=== PATIENT | female | born 1950 | race Caucasian/White ===

== ENCOUNTER 2020-08-16 10:12 | Outpatient (REF) | payer MEDICARE, SELFPAY ==
[2020-08-16 11:32] LABS: Estimated Average Glucose 180 mg/dL; Hemoglobin A1c % 7.9 %
[2020-08-16 11:41] LABS: Alanine Aminotransferase 19 U/L (0-31); Cholesterol 194 mg/dL; Glucose Fasting 149 mg/dL (60-99); HDL Cholesterol 86 mg/dL; LDL Cholesterol Calculated 90 mg/dl; Triglycerides 93 mg/dL
[2020-08-16 14:35] LABS: Creatinine Urine 146.03 mg/dL; Microalbum/Creatinine Ratio Ur 10.2 ug/mg cr
== END 2020-08-16 10:13 | disposition home or self-care (01) ==
LOC: HO.HMGCLDS 10:12
PROVIDERS: PCP Family Medicine; Visit Provider Family Medicine
DX: E11.9 Type 2 diabetes mellitus without complications (principal); E78.00 Pure hypercholesterolemia, unspecified; Z79.899 Other long term (current) drug therapy
CPT/HCPCS: 36415; 80061; 82043; 82550; 82947; 83036; 84460

== ENCOUNTER 2020-11-21 11:41 | Outpatient (REF) | payer MEDICARE, SELFPAY ==
[2020-11-21 14:37] LABS: Free T4 (Free Thyroxine) 1.19 ng/dL (0.71-1.85); Thyroid Stimulating Hormone 0.71 uIU/mL (0.32-4.0)
== END 2020-11-21 11:42 | disposition home or self-care (01) ==
LOC: HO.HMGCLDS 11:41
PROVIDERS: PCP Family Medicine; Visit Provider Family Medicine
DX: E03.9 Hypothyroidism, unspecified (principal)
CPT/HCPCS: 36415; 84439; 84443

== ENCOUNTER 2021-01-04 08:38 | Outpatient (REF) | payer MEDICARE, SELFPAY ==
--- NOTE | ~2021-01-04 | MM_ITS ---
EXAMINATION: MM SCREENING DIGITAL BREAST TOMOSYNTHESIS, BILATERAL CLINICAL INFORMATION: Screening. Asymptomatic. The lifetime risk of breast cancer based on the Tyrer-Cuzick Model is 8.9%. COMPARISON: Mammography: June 24, 2019 and studies dating back to October 28, 2011 TECHNIQUE: Digital breast tomosynthesis is performed in both the craniocaudal and mediolateral oblique views along with computer-aided detection (CAD). Synthesized 2D images are generated from the tomosynthesis. FINDINGS: There are scattered areas of fibroglandular density (ACR BI-RADS breast composition Category b). There are no significant masses, abnormal calcifications, or other abnormalities. MM/MM tomosynthesis screening BI IMPRESSION: There are no significant changes from prior study. ASSESSMENT: BI-RADS 1: Negative RECOMMENDATION: Routine annual mammography screening. This patient's information was entered into a reminder system with a target due date for their next mammogram.
== END 2021-01-04 08:39 | disposition home or self-care (01) ==
LOC: HO.MAMMO 08:38
PROVIDERS: PCP Family Medicine; Visit Provider Family Medicine
DX: Z12.31 Encounter for screening mammogram for malignant neoplasm of breast (principal)
CPT/HCPCS: 77063; 77067

== ENCOUNTER 2021-02-28 09:19 | Outpatient (REF) | payer MEDICARE, SELFPAY ==
[2021-02-28 12:01] LABS: Estimated Average Glucose 177 mg/dL; Hemoglobin A1c % 7.8 %
[2021-02-28 12:16] LABS: Alanine Aminotransferase 19 U/L (0-31); Anion Gap 12 (12-20); Blood Urea Nitrogen 14 mg/dL (9-16); Carbon Dioxide 29 mmol/L (22-29); Chloride 105 mmol/L (96-108); Estimated Glomerular Filt Rate > 60; Glucose Fasting 163 mg/dL (60-99); Potassium 4.9 mmol/L (3.3-5.1); Sodium 141 mmol/L (135-145)
== END 2021-02-28 09:20 | disposition home or self-care (01) ==
LOC: HO.HMGCLDS 09:19
PROVIDERS: PCP Family Medicine; Visit Provider Family Medicine
DX: E11.9 Type 2 diabetes mellitus without complications (principal); E78.00 Pure hypercholesterolemia, unspecified; I10 Essential (primary) hypertension; Z79.899 Other long term (current) drug therapy
CPT/HCPCS: 36415; 80051; 82550; 82565; 82947; 83036; 84460; 84520

== ENCOUNTER 2021-07-02 09:58 | Outpatient (REF) | payer MEDICARE, SELFPAY ==
[2021-07-02 11:52] LABS: Estimated Average Glucose 209 mg/dL; Hemoglobin A1c % 8.9 %
[2021-07-02 11:53] LABS: Glucose Fasting 175 mg/dL (60-99)
[2021-07-02 12:22] LABS: Free T4 (Free Thyroxine) 1.15 ng/dL (0.71-1.85); Thyroid Stimulating Hormone 0.49 uIU/mL (0.32-4.0)
== END 2021-07-02 09:59 | disposition home or self-care (01) ==
LOC: HO.HMGCLDS 09:58
PROVIDERS: PCP Family Medicine; Visit Provider Family Medicine
DX: E03.9 Hypothyroidism, unspecified (principal); E11.9 Type 2 diabetes mellitus without complications
CPT/HCPCS: 36415; 82947; 83036; 84439; 84443

== ENCOUNTER 2021-08-23 08:49 | Outpatient (REF) | payer MEDICARE, SELFPAY ==
[2021-08-23 11:37] LABS: Estimated Average Glucose 220 mg/dL; Hemoglobin A1c % 9.3 %
[2021-08-23 12:01] LABS: Alanine Aminotransferase 16 U/L (0-31); Aspartate Amino Transferase 17 U/L (5-31); Estimated Glomerular Filt Rate > 60; Glucose Fasting 161 mg/dL (60-99)
== END 2021-08-23 08:50 | disposition home or self-care (01) ==
LOC: HO.HMGCLDS 08:49
PROVIDERS: PCP Family Medicine; Visit Provider Family Medicine
DX: E11.9 Type 2 diabetes mellitus without complications (principal); E78.00 Pure hypercholesterolemia, unspecified; Z79.899 Other long term (current) drug therapy
CPT/HCPCS: 36415; 82565; 82947; 83036; 84450; 84460

== ENCOUNTER 2021-09-26 12:08 | Outpatient (REF) | payer MEDICARE, SELFPAY ==
--- NOTE | ~2021-09-26 | XR_ITS ---
EXAMINATION: XR HIP, RIGHT CLINICAL INFORMATION: Right hip pain. COMPARISON: X-rays of the right femur September 2014. TECHNIQUE: Two views of the right hip. FINDINGS: The right hip joint is normal without joint space narrowing or degenerative changes. Postop changes in the femur with antegrade femoral lauren with proximal screw in place as seen previously. Heterotopic ossification noted along the proximal end of the lauren unchanged. Slight deformity of the proximal femur unchanged compatible with old healed fracture. XR/XR hip RT min 2V IMPRESSION: Right hip joint is within normal limits without arthrosis. Postop changes of the femur and old stable healed fracture.
== END 2021-09-26 12:09 | disposition home or self-care (01) ==
LOC: HO.HMGCX 12:08
PROVIDERS: PCP Family Medicine; Visit Provider Family Medicine
DX: M25.551 Pain in right hip (principal)
CPT/HCPCS: 73502

== ENCOUNTER 2021-12-27 11:20 | Outpatient (REF) | payer MEDICARE, SELFPAY ==
[2021-12-27 14:01] LABS: Appearance Urine HAZY; Color Urine YELLOW; Glucose Urine UA >=1000 MG/DL (NEG); Leukocyte Esterase Urine NEG (NEG); Nitrite Urine NEG (NEG); PH 5.5 (5.0-8.0); Specific Gravity - Urine 1.025 (1.005-1.025); UACC Culture Trigger NO; Urine Blood TRACE (NEG); Urine Ketones NEG (NEG); Urine Protein NEG (NEG-TRACE)
[2021-12-27 14:15] LABS: Bacteria Urine 2+ /LPF; Calcium Oxalate Crystals Urine 2+ /LPF; RBC Urine 0-2 /HPF (0); UACC CULT YES
== END 2021-12-27 11:21 | disposition home or self-care (01) ==
LOC: HO.HMGCLDS 11:20
PROVIDERS: PCP Family Medicine; Visit Provider Family Medicine
DX: R30.0 Dysuria (principal)
CPT/HCPCS: 81001; 81003; 87086; 87088; 87186

== ENCOUNTER 2022-03-18 09:54 | Outpatient (REF) | payer MEDICARE, SELFPAY ==
[2022-03-18 11:44] LABS: Estimated Average Glucose 174 mg/dL; Hemoglobin A1c % 7.7 %
[2022-03-18 12:04] LABS: Alanine Aminotransferase 16 U/L (0-31); Aspartate Amino Transferase 18 U/L (5-31); Estimated Glomerular Filt Rate > 60; Glucose Random 128 mg/dL (60-115)
[2022-03-18 12:07] LABS: Free T4 (Free Thyroxine) 1.25 ng/dL (0.71-1.85)
[2022-03-18 12:10] LABS: Creatinine Urine 65.22 mg/dL; Microalbum/Creatinine Ratio Ur 7.6 ug/mg cr
== END 2022-03-18 09:55 | disposition home or self-care (01) ==
LOC: HO.HMGCLDS 09:54
PROVIDERS: PCP Family Medicine; Visit Provider Family Medicine
DX: E11.9 Type 2 diabetes mellitus without complications (principal); E78.00 Pure hypercholesterolemia, unspecified; E03.9 Hypothyroidism, unspecified; Z79.899 Other long term (current) drug therapy
CPT/HCPCS: 36415; 82043; 82550; 82565; 82947; 83036; 84439; 84450; 84460

== ENCOUNTER 2022-03-25 13:31 | Outpatient (REF) | payer MEDICARE, SELFPAY ==
--- NOTE | ~2022-03-25 | XR_ITS ---
EXAMINATION: XR SHOULDER, LEFT CLINICAL INFORMATION: Pain COMPARISON lung is grossly clear: Left shoulder radiographs 10/14/2015 TECHNIQUE: Three views of the left shoulder. FINDINGS: No acute fracture or dislocation. Glenohumeral joint space appears maintained as does the acromiohumeral interval. No periarticular soft tissue calcification. AC joint is congruent and intact with subchondral sclerosis and osteophyte formation. Visualized left lung is grossly clear. XR/XR shoulder LT min 2V IMPRESSION: 1. No acute osseous injury. 2. Mild acromioclavicular arthropathy, development since prior 2015.
== END 2022-03-25 13:32 | disposition home or self-care (01) ==
LOC: HO.HMGCX 13:31
PROVIDERS: PCP Family Medicine; Visit Provider Family Medicine
DX: M25.512 Pain in left shoulder (principal)
CPT/HCPCS: 73030

== ENCOUNTER 2022-08-16 10:39 | Outpatient (REF) | payer MEDICARE, SELFPAY ==
[2022-08-16 14:05] LABS: MANUAL DIFF FLAG NO
[2022-08-16 14:10] LABS: Basophils Percent Auto 0.6 % (0-2); Eosinophils Absolute Auto 0.1 X10*3/uL (0.0-0.4); Eosinophils Percent Auto 1.5 % (0-4); Hematocrit 47.9 % (37.0-47.0); Hemoglobin 15.7 g/dl (12.0-16.0); Imm Gran Abs Auto 0.02 X10*3/uL (0.00-0.03); Imm Gran Pct Auto 0.4 % (0.0-0.4); Lymphocytes Absolute Auto 1.6 X10*3/uL (1.2-4.9); Lymphocytes Percent Auto 30.1 % (20-40); Mean Corpuscular HGB Conc 32.8 g/dl (31.0-35.0); Mean Corpuscular Hemoglobin 33.4 pg (27.0-33.0); Mean Corpuscular Volume 101.9 fL (80.0-98.0); Mean Platelet Volume 9.9 fL (9.4-12.3); Monocytes Absolute Auto 0.4 X10*3/uL (0.1-1.2); Monocytes Percent Auto 6.7 % (2-11); Neutrophils Absolute Auto 3.3 x10*3/uL (2.0-8.3); Neutrophils Percent Auto 60.7 % (45-73); Platelet Count 299 X10*3/uL (160-400); Red Cell Distribution Width 12.9 % (11.0-16.0); White Blood Count 5.4 X10*3/uL (4.8-10.8)
[2022-08-16 14:17] LABS: Estimated Average Glucose 186 mg/dL; Hemoglobin A1c % 8.1 %
[2022-08-16 14:32] LABS: Alanine Aminotransferase 14 U/L (0-31); Aspartate Amino Transferase 17 U/L (5-31); Glucose Fasting 117 mg/dL (60-99)
[2022-08-16 14:34] LABS: Creatinine Urine 64.07 mg/dL; Microalbum/Creatinine Ratio Ur 12.4 ug/mg cr
[2022-08-16 14:40] LABS: Free T4 (Free Thyroxine) 1.25 ng/dL (0.71-1.85)
[2022-08-16 14:53] LABS: Erythrocyte Sedimentation Rate 2 MM/HR (0-20)
== END 2022-08-16 10:40 | disposition home or self-care (01) ==
LOC: HO.HMGCLDS 10:39
PROVIDERS: PCP Family Medicine; Visit Provider Family Medicine
DX: E11.9 Type 2 diabetes mellitus without complications (principal); R63.4 Abnormal weight loss; E03.9 Hypothyroidism, unspecified; E78.00 Pure hypercholesterolemia, unspecified; Z79.899 Other long term (current) drug therapy
CPT/HCPCS: 36415; 82043; 82550; 82947; 83036; 84439; 84450; 84460; 85025; 85652

== ENCOUNTER 2022-09-04 09:15 | Outpatient (REF) | payer MEDICARE, SELFPAY ==
[2022-09-04 11:27] LABS: Glucose Fasting 142 mg/dL (60-99)
[2022-09-04 11:47] LABS: Estimated Average Glucose 189 mg/dL; Hemoglobin A1c % 8.2 %
== END 2022-09-04 09:16 | disposition home or self-care (01) ==
LOC: HO.HMGCLDS 09:15
PROVIDERS: Visit Provider Family Medicine
DX: Z13.89 Encounter for screening for other disorder (principal)
CPT/HCPCS: 36415; 82947; 83036

== ENCOUNTER 2022-09-10 09:52 | Outpatient (REF) | payer MEDICARE, SELFPAY ==
--- NOTE | ~2022-09-10 | MM_ITS ---
EXAMINATION: MM SCREENING DIGITAL BREAST TOMOSYNTHESIS, BILATERAL CLINICAL INFORMATION: Screening. Asymptomatic. Family history breast cancer, father, age 91. The lifetime risk of breast cancer based on the Tyrer-Cuzick Model is 7%. COMPARISON: Mammography: 01/04/2021, 06/24/2019, 06/12/2018 TECHNIQUE: Digital breast tomosynthesis is performed in both the craniocaudal and mediolateral oblique views along with computer-aided detection (CAD). Synthesized 2D images are generated from the tomosynthesis. Additional left CC view is provided. FINDINGS: There are scattered areas of fibroglandular density (ACR BI-RADS breast composition Category b). There are no significant masses, abnormal calcifications, or other abnormalities. There is dermal lesion again seen overlying the posterior upper left breast marked with skin marker. The axilla are unremarkable. No significant changes. MM/MM tomosynthesis screening BI IMPRESSION: No mammographic evidence of malignancy. ASSESSMENT: BI-RADS 2: Benign RECOMMENDATION: Routine annual mammography screening. This patient's information was entered into a reminder system with a target due date for their next mammogram.
== END 2022-09-10 09:53 | disposition home or self-care (01) ==
LOC: HO.MAMMO 09:52
PROVIDERS: PCP Family Medicine; Visit Provider Family Medicine
DX: Z12.31 Encounter for screening mammogram for malignant neoplasm of breast (principal)
CPT/HCPCS: 77063; 77067

== ENCOUNTER 2023-01-28 10:20 | Outpatient (REF) | payer MEDICARE, SELFPAY ==
[2023-01-28 13:32] LABS: Estimated Average Glucose 157 mg/dL; Hemoglobin A1c % 7.1 %
[2023-01-28 13:37] LABS: Glucose Fasting 130 mg/dL (60-99)
[2023-01-28 13:41] LABS: Free T4 (Free Thyroxine) 1.11 ng/dL (0.71-1.85)
== END 2023-01-28 10:21 | disposition home or self-care (01) ==
LOC: HO.HMGCLDS 10:20
PROVIDERS: PCP Family Medicine; Visit Provider Family Medicine
DX: E11.9 Type 2 diabetes mellitus without complications (principal); E03.9 Hypothyroidism, unspecified
CPT/HCPCS: 36415; 82947; 83036; 84439

== ENCOUNTER 2023-02-17 11:55 | Outpatient (REF) | payer MEDICARE, SELFPAY ==
[2023-02-17 13:19] LABS: MANUAL DIFF FLAG NO
[2023-02-17 13:43] LABS: Basophils Percent Auto 0.3 % (0-2); Eosinophils Percent Auto 0.3 % (0-4); Hematocrit 46.8 % (37.0-47.0); Hemoglobin 15.4 g/dl (12.0-16.0); Imm Gran Abs Auto 0.03 X10*3/uL (0.00-0.03); Imm Gran Pct Auto 0.4 % (0.0-0.4); Lymphocytes Absolute Auto 1.9 X10*3/uL (1.2-4.9); Lymphocytes Percent Auto 25.8 % (20-40); Mean Corpuscular HGB Conc 32.9 g/dl (31.0-35.0); Mean Corpuscular Hemoglobin 32.9 pg (27.0-33.0); Mean Platelet Volume 9.9 fL (9.4-12.3); Monocytes Absolute Auto 0.5 X10*3/uL (0.1-1.2); Monocytes Percent Auto 7.2 % (2-11); Platelet Count 313 X10*3/uL (160-400); Red Blood Count 4.68 X10*6/uL (4.20-5.50); Red Cell Distribution Width 13.5 % (11.0-16.0); White Blood Count 7.5 X10*3/uL (4.8-10.8)
[2023-02-17 14:05] LABS: Alanine Aminotransferase 19 U/L (0-31); Albumin Level 4.3 g/dL (3.5-5.0); Alkaline Phosphatase 68 U/L (39-117); Anion Gap 13 (12-20); Aspartate Amino Transferase 16 U/L (5-31); Bilirubin Total 0.4 mg/dL (0.0-1.0); Blood Urea Nitrogen 19 mg/dL (9-16); Calcium 9.9 mg/dL (8.4-10.2); Carbon Dioxide 28 mmol/L (22-29); Chloride 105 mmol/L (96-108); Estimated Glomerular Filt Rate > 60; Glucose Random 143 mg/dL (60-115); Sodium 142 mmol/L (135-145); Total Protein 7.2 g/dL (6.5-8.0)
== END 2023-02-17 11:56 | disposition home or self-care (01) ==
LOC: HO.10HDL 11:55
PROVIDERS: Visit Provider Family Medicine
DX: I10 Essential (primary) hypertension (principal)
CPT/HCPCS: 36415; 80053; 85025

== ENCOUNTER 2023-08-12 10:22 | Outpatient (AMB) | payer MEDICARE, SELFPAY ==
[2023-08-12 10:30] VITALS: BMI 24.4
--- NOTE | 2023-08-12 10:30 | A.OFFVIS_ITS ---
Intake VS Expanded 08/12/23 10:30 08/18/23 13:29 Height 5 ft 2 in 5 ft 2 in Weight 133 lb 2.547 oz 133 lb BMI 24.4 24.3 Intake Visit Reasons: Nutrition/CONFIRMED Allergies codeine [CODEINE] Allergy (Mild, Unverified 03/23/20 16:28) DOUBLE VISION Codeine Phosphate Allergy (Unknown, Uncoded 05/27/11 00:00) HPI Nutrition Presentation Details Pt present for MNT for T2DM. Pt was referred by Brad Young Patient reports her fasting bg range at 140 Typical meal intake B: plain oatmeal nuts/blueberries L: fast food dinner: oatmeal /berries/nut Food frequency Fruits 0-1 a day Vegetables 0 to 2 times a week Dairy 3 servings daily Fish 0 to once a week Empty calorie foods: To per day Physical activity: Reports daily life activities EHR-Hceilmc-Et.Jeor Equation Height 5 ft 2 in Weight 133 lb Resting Metabolic Rate 1076.60 Calculated Activity Level Sedentary Calories Needed to Maintain Weight 1291.92 Diagnosis Nutrition problem #1 altered nutrition labs As related to (etiology) #1 diagnosis As evidenced by (sign/symptom) #1 abnormal lab values (A1c at 8 %) Monitoring/Goals Nutrition problem monitoring level of knowledge/skill, total PRO intake, total CHO intake and oral fluids Learning/Education Readiness to learn good Stages of change action Educational materials provided Yes (Meal planning reducing total carb to 45 g per meal following healthy plate ) Most Recent Diabetes Results: Microalb/Creat Ratio 12.4 ug/mg cr 08/16/22 Creatinine 0.74 mg/dL (0.5-1.4) 02/17/23 Blood Urea Nitrogen 19 mg/dL (9-16) H 02/17/23 Sodium 142 mmol/L (135-145) 02/17/23 Potassium 4.0 mmol/L (3.3-5.1) 02/17/23 Chloride 105 mmol/L (96-108) 02/17/23 Carbon Dioxide 28 mmol/L (22-29) 02/17/23 Calcium 9.9 mg/dL (8.4-10.2) 02/17/23 AST 16 U/L (5-31) 02/17/23 ALT 19 U/L (0-31) 02/17/23 Total Protein 7.2 g/dL (6.5-8.0) 02/17/23 Albumin 4.3 g/dL (3.5-5.0) 02/17/23 Assessment & Plan Assessment & Plan (1) T2DM (type 2 diabetes mellitus): Code(s): E11.9 - Type 2 diabetes mellitus without complications Plan: Wt: 60 Kg ( ) Est kcal needs as per 25 per kg body weigt : 1500 (40% carb, 30% protein/fat) Est fluid needs as per 25 ml/d: 1500 Est prot per day as per 1 g/kg bw: 60 Recommend fiber intake : 8-10 g per day and gradually increase to 25-28 g per day for women and 35-38 g for men or as tolerated Recommend sodium intake per day : less than 2000 mg Educated patient on: ( R = reviewed V = verbalizes understanding N/R = needs review N/A = not applicable * Food sources of carbohydrate, adequate serving sizes and its role in various health conditions: R * Differences between complex carbohydrates a simple carbohydrates, role of fiber in diet: R * Lean protein sources of foods: R * Differences between types of fats and role in diet (mono on saturated fat fatty acids, saturated fatty acids, trans fats): R * Food sources of sodium in salt and healthy modifications for heart health in kidney health: NR * Vitamins and minerals: N/R * Healthy plate method concept: R * Physical activity: Benefits a precaution: R * Hypoglycemia protocol (rule of 15): N/R * Dietary prevention of Hyperglycemia: R Patient Instructions: Reduce on highly processed foods (fried foods, better so, pastries) Work on reducing your total carbohydrates to 45 g following healthy plate method Monitor your blood glucose 2 hours after the meal (blood sugar goal should be between 80 and no greater than 180) Coding Level of Care Code Nutr Indiv Intake (43096) Diagnoses T2DM (type 2 diabetes mellitus) E11.9 Time Spent (min) 30
[2023-08-18 13:29] VITALS: BMI 24.3
== END 2023-08-12 11:11 | disposition home or self-care (01) ==
PROVIDERS: PCP Family Medicine; Visit Provider Dietitian, Registered
DX: E11.9 Type 2 diabetes mellitus without complications (principal)

== ENCOUNTER → 2023-08-12 10:22 | Outpatient (BNVA) | payer MEDICARE, SELFPAY | PROVIDERS: PCP Family Medicine; Visit Provider Dietitian, Registered | DX: E11.9 Type 2 diabetes mellitus without complications (principal) | CPT/HCPCS: 97802 ==

== ENCOUNTER 2023-09-01 08:38 | Outpatient (REF) | payer MEDICARE, SELFPAY ==
[2023-09-01 11:57] LABS: Estimated Average Glucose 171 mg/dL; Hemoglobin A1c % 7.6 % (<6.0)
[2023-09-01 12:05] LABS: Alanine Aminotransferase 18 U/L (0-31); Aspartate Amino Transferase 19 U/L (5-31); Estimated Glomerular Filt Rate > 60; Glucose Fasting 130 mg/dL (60-99)
== END 2023-09-01 08:39 | disposition home or self-care (01) ==
LOC: HO.HMGCLDS 08:38
PROVIDERS: PCP Family Medicine; Visit Provider Family Medicine
DX: E78.00 Pure hypercholesterolemia, unspecified (principal); E11.9 Type 2 diabetes mellitus without complications; Z79.899 Other long term (current) drug therapy
CPT/HCPCS: 36415; 82550; 82565; 82947; 83036; 84450; 84460

== ENCOUNTER 2023-09-24 09:54 | Outpatient (AMB) | payer MEDICARE, SELFPAY ==
[2023-09-24 09:59] VITALS: BMI 23.1
--- NOTE | 2023-09-24 09:59 | A.OFFVIS_ITS ---
Intake VS Expanded 09/24/23 09:59 Height 5 ft 2 in Weight 126 lb 1.671 oz BMI 23.1 Intake Visit Reasons: T2DM/CONFIRMED Allergies codeine [CODEINE] Allergy (Mild, Unverified 09/12/23 13:32) DOUBLE VISION Codeine Phosphate Allergy (Unknown, Uncoded 09/12/23 13:32) HPI Nutrition Presentation Details Pt presents for MNT follow up for T2DM Pt reports working on dietary modifications and keeping physically active. Pt re ports feeling well overall. Takes a daily multivitamin keeping hydrated by having water iwth meals/snacks Keep physically active, daily life activities + work Most Recent Diabetes Results: Microalb/Creat Ratio 12.4 ug/mg cr 08/16/22 Creatinine 0.64 mg/dL (0.5-1.4) 09/01/23 Blood Urea Nitrogen 19 mg/dL (9-16) H 02/17/23 Sodium 142 mmol/L (135-145) 02/17/23 Potassium 4.0 mmol/L (3.3-5.1) 02/17/23 Chloride 105 mmol/L (96-108) 02/17/23 Carbon Dioxide 28 mmol/L (22-29) 02/17/23 Calcium 9.9 mg/dL (8.4-10.2) 02/17/23 AST 19 U/L (5-31) 09/01/23 ALT 18 U/L (0-31) 09/01/23 Total Protein 7.2 g/dL (6.5-8.0) 02/17/23 Albumin 4.3 g/dL (3.5-5.0) 02/17/23 Assessment & Plan Assessment & Plan (1) T2DM (type 2 diabetes mellitus): Code(s): E11.9 - Type 2 diabetes mellitus without complications Plan: Wt: 57 Kg ( 09/24/23 ) Est kcal needs as per 25 per kg body weigt : 1500 (40% carb, 30% protein/fat) Est fluid needs as per 25 ml/d: 1500 Est prot per day as per 1 g/kg bw: 60 Recommend fiber intake : 8-10 g per day and gradually increase to 25-28 g per day for women and 35-38 g for men or as tolerated Recommend sodium intake per day : less than 2000 mg Educated patient on: ( R = reviewed V = verbalizes understanding N/R = needs review N/A = not applicable * Food sources of carbohydrate, adequate serving sizes and its role in various health conditions: R * Differences between complex carbohydrates a simple carbohydrates, role of fiber in diet: R * Lean protein sources of foods: R * Differences between types of fats and role in diet (mono on saturated fat fatty acids, saturated fatty acids, trans fats): R * Food sources of sodium in salt and healthy modifications for heart health in kidney health: R * Vitamins and minerals: R * Healthy plate method concept: R * Physical activity: Benefits a precaution: R * Hypoglycemia protocol (rule of 15): R * Dietary prevention of Hyperglycemia: R Patient Instructions: Continue working on following healthy plate method Read food labels, looking at serving size/ total carb/fiber /protein - balancing meals/snacks Include at least 2 trevon of fruit per day and 2 serving of dairy per day Continue with physical activity as established Coding Level of Care Code Nutr Indiv Subseq (22304) Diagnoses T2DM (type 2 diabetes mellitus) E11.9 Time Spent (min) 30
== END 2023-09-24 10:49 | disposition home or self-care (01) ==
PROVIDERS: PCP Family Medicine; Visit Provider Dietitian, Registered
DX: E11.9 Type 2 diabetes mellitus without complications (principal)

== ENCOUNTER → 2023-09-24 09:54 | Outpatient (BNVA) | payer MEDICARE, SELFPAY | PROVIDERS: PCP Family Medicine; Visit Provider Dietitian, Registered | DX: E11.9 Type 2 diabetes mellitus without complications (principal) | CPT/HCPCS: 97803 ==

== ENCOUNTER 2023-09-30 08:59 | Outpatient (REF) | payer MEDICARE, SELFPAY ==
[2023-09-30 12:13] LABS: Appearance Urine Clear; Color Urine Dark Yellow; Glucose Urine UA >=1000 mg/dL (Negative); Leukocyte Esterase Urine Negative (Negative); Nitrite Urine Positive (Negative); PH 5.5 (5.0-9.0); Specific Gravity - Urine >= 1.030 (1.005-1.025); UMIC TRIGGER UACC YES; Urine Blood Negative (Negative); Urine Ketones Negative (Negative); Urine Protein Negative (Neg-Trace)
[2023-09-30 12:34] LABS: Bacteria Urine 1+ (None Seen); Hyaline Casts Urine 0-2 /LPF (0-2); RBC Urine 0-2 /HPF (0-2); UACC Culture Trigger YES; WBC Urine >50 /HPF (0-5)
[2023-09-30 12:44] LABS: Creatinine Urine 23.61 mg/dL; Microalbum/Creatinine Ratio Ur 105.8 ug/mg cr (<30)
[2023-09-30 13:04] LABS: Free T4 (Free Thyroxine) 1.15 ng/dL (0.71-1.85); Thyroid Stimulating Hormone 0.29 uIU/mL (0.32-4.0)
== END 2023-09-30 09:00 | disposition home or self-care (01) ==
LOC: HO.HMGCLDS 08:59
PROVIDERS: PCP Family Medicine; Visit Provider Family Medicine
DX: N39.0 Urinary tract infection, site not specified (principal); E03.9 Hypothyroidism, unspecified; E11.9 Type 2 diabetes mellitus without complications
CPT/HCPCS: 36415; 81001; 81003; 82043; 82570; 84439; 84443; 87086; 87088; 87186

== ENCOUNTER 2023-10-01 12:02 | Outpatient (REF) | payer MEDICARE, SELFPAY | END 2023-10-01 12:03 | disposition home or self-care (01) | LOC: HO.MAMMO 12:02 | PROVIDERS: PCP Family Medicine; Visit Provider Family Medicine | DX: Z12.31 Encounter for screening mammogram for malignant neoplasm of breast (principal) | CPT/HCPCS: 77063; 77067 ==

== ENCOUNTER → 2023-10-01 12:15 | Outpatient (BNV) | payer MEDICARE, SELFPAY | PROVIDERS: PCP Family Medicine; Visit Provider Radiology Diagnostic Radiology | DX: Z12.31 Encounter for screening mammogram for malignant neoplasm of breast (principal) | CPT/HCPCS: 77063; 77067 ==

== ENCOUNTER 2023-10-15 13:54 | Outpatient (REF) | payer MEDICARE, SELFPAY ==
[2023-10-15 16:19] LABS: Appearance Urine Clear; Color Urine Yellow; Glucose Urine UA >=1000 mg/dL (Negative); Leukocyte Esterase Urine Small (1+) (Negative); Nitrite Urine Negative (Negative); UMIC TRIGGER UACC YES; Urine Blood Trace (Negative); Urine Ketones Trace mg/dL (Negative); Urine Protein Negative (Neg-Trace)
[2023-10-15 16:22] LABS: Bacteria Urine None Seen (None Seen); Hyaline Casts Urine 0-2 /LPF (0-2); RBC Urine 0-2 /HPF (0-2); Squamous Epithelial Cell Urine 0-2 /HPF (0-2); UACC Culture Trigger YES; WBC Urine >50 /HPF (0-5)
== END 2023-10-15 13:55 | disposition home or self-care (01) ==
LOC: HO.HMGCLDS 13:54
PROVIDERS: PCP Family Medicine; Visit Provider Family Medicine
DX: R30.0 Dysuria (principal); R35.0 Frequency of micturition
CPT/HCPCS: 81001; 87086

== ENCOUNTER 2024-03-04 09:04 | Outpatient (REF) | payer MEDICARE, SELFPAY ==
[2024-03-04 13:56] LABS: Alanine Aminotransferase 16 U/L (0-31); Aspartate Amino Transferase 20 U/L (5-31); Estimated Glomerular Filt Rate > 60; Free T4 (Free Thyroxine) 1.01 ng/dL (0.71-1.85); Glucose Fasting 131 mg/dL (60-99)
[2024-03-04 14:02] LABS: Creatinine Urine 55.97 mg/dL; Microalbum/Creatinine Ratio Ur 28.5 ug/mg cr (<30)
[2024-03-04 14:06] LABS: Estimated Average Glucose 174 mg/dL; Hemoglobin A1c % 7.7 % (<6.0)
== END 2024-03-04 09:05 | disposition home or self-care (01) ==
LOC: HO.HMGCLDS 09:04
PROVIDERS: PCP Family Medicine; Visit Provider Family Medicine
DX: E11.9 Type 2 diabetes mellitus without complications (principal); E78.00 Pure hypercholesterolemia, unspecified; E03.9 Hypothyroidism, unspecified
CPT/HCPCS: 36415; 82043; 82550; 82565; 82570; 82947; 83036; 84439; 84450; 84460

== ENCOUNTER 2024-04-06 09:38 | Outpatient (AMB) | payer MEDICARE, SELFPAY ==
[2024-04-06 09:41] VITALS: BMI 24.4
--- NOTE | 2024-04-06 09:41 | A.OFFVIS_ITS ---
VS Expanded 04/06/24 09:41 Height 5 ft 2 in Weight 133 lb 6.075 oz BMI 24.4 Intake Visit Reasons: T2DM/CONFIRMED Allergies codeine [CODEINE] Allergy (Mild, Unverified 09/12/23 13:32) DOUBLE VISION Codeine Phosphate Allergy (Unknown, Uncoded 09/12/23 13:32) Nutrition Presentation Details: Pt presents for MNT f/u for T2DM Pt reports doing well, working on meal planning and reducing on higher sugar/fat foods Pt reports BG ranges in the 140-150s in AM, not monitoring after meals Pt keeps track of foods and bg intake for self assessment. Pt is choosing a variety of foods, following healthy plate method in most meals Pt reports choosing the following vitamins/minerals on and off magnesium,co qq 10, vitami c , vt d3 and on a daily MVI For DM she is on : farxiga, metformin baby asa Pt repors she is also on levoxyl, simvastatin, BS Monitoring Most Recent Diabetes Results: Microalb/Creat Ratio 28.5 ug/mg cr (<30) 03/04/24 Creatinine 0.71 mg/dL (0.5-1.4) 03/04/24 AST 20 U/L (5-31) 03/04/24 ALT 16 U/L (0-31) 03/04/24 Assessment & Plan Assessment & Plan (1) T2DM (type 2 diabetes mellitus): Code(s): E11.9 - Type 2 diabetes mellitus without complications Category: Medical Plan: Wt: 57 Kg ( 09/24/23 ), 60 kg (04/29) Est kcal needs as per 25 per kg body weigt : 1500 (40% carb, 30% protein/fat) Est fluid needs as per 25 ml/d: 1500 Est prot per day as per 1 g/kg bw: 60 Recommend fiber intake : 8-10 g per day and gradually increase to 25-28 g per day for women and 35-38 g for men or as tolerated Recommend sodium intake per day : less than 2000 mg Educated patient on: ( R = reviewed V = verbalizes understanding N/R = needs review N/A = not applicable * Food sources of carbohydrate, adequate serving sizes and its role in various health conditions: R * Differences between complex carbohydrates a simple carbohydrates, role of fiber in diet: R * Lean protein sources of foods: R * Differences between types of fats and role in diet (mono on saturated fat fatty acids, saturated fatty acids, trans fats): R * Food sources of sodium in salt and healthy modifications for heart health in kidney health: R * Vitamins and minerals: R * Healthy plate method concept: R * Physical activity: Benefits a precaution: R * Hypoglycemia protocol (rule of 15): R * Dietary prevention of Hyperglycemia: R Patient Instructions: continue working on having a variety of foods, reducing on total carbohydrates to 45 g per meal following healthy plate method monitor blood sugar 2 hours after your dinner , blood sugar goal less than 180 Coding Level of Care Code Nutr Indiv Subseq (95395) Diagnoses T2DM (type 2 diabetes mellitus) E11.9 Time Spent (min) 30
== END 2024-04-06 10:28 | disposition home or self-care (01) ==
PROVIDERS: PCP Family Medicine; Visit Provider Dietitian, Registered
DX: E11.9 Type 2 diabetes mellitus without complications (principal)

== ENCOUNTER → 2024-04-06 09:38 | Outpatient (BNVA) | payer MEDICARE, SELFPAY | PROVIDERS: PCP Family Medicine; Visit Provider Dietitian, Registered | DX: E11.9 Type 2 diabetes mellitus without complications (principal); Z71.3 Dietary counseling and surveillance | CPT/HCPCS: 97803 ==

== ENCOUNTER 2024-08-27 08:20 | Outpatient (REF) | payer MEDICARE, SELFPAY ==
--- OUTSIDE RECORDS SUMMARY | 2024-08-27 08:32 | XMS_ITS ---
Author Organization [facility] Address [address] [place] [address] Care Team Providers Care Resource Room Teacher Name Role Phone Reed ACKERMAN, Brad Primary Care Provider Unavailab Candace Ko Unavailable [phone] Anurag Jang Unavailable [phone] REASON FOR VISIT /tamara Encounters Encounter Location Date Provider Diagnosis [address] [address] 05/17/2024 Anurag Jang Plan Of Treatment Next Appt Details Provider Name:Olinda Ricks , 05/16/2025 10:00:00 AM, [address] [place] [address], [address], Progress Notes * ARIANNERut MORGANl LDOB: 2 (74 yo F)Acc No.[id number]:05/17/2024 Progress Note Patient:?Alayna FLORES Provider:?Anurag Jang DPM :1950???Age:73 Y???Sex:Female D ate:05/17/2024 Address:[address] [place] Pcp:Brad Mcbride MD Subjective: * Chief Complaints: * ???1. * Medical History:? Objective: * Vitals:? Assessment: Plan: * Treatment: * Images: * The named appointment provid er may or may not be the originator of this progress note, and it is not deemed complete until electronically signed by the appointment provider. Sign off status: Pending * Provider:Willam Jang DPM Date:? 024 Generated for Ayan fleming/Mehdi/Roz on:?08/27/2024 08:31 AM EST
--- OUTSIDE RECORDS SUMMARY | 2024-08-27 08:32 | XMS_ITS | Patient Health Record ---
Author Organization [facility] Address [address] [facility] [place] [address] Care Team Providers Care Siding Coreboard Inspector Name Role Phone Brad Mcbride MD Primary Care Provider Unavailab Candace Ko Unavailable [phone] Rambo, Olinda Unavailable [phone] Anurag Jang Unavailable [phone] Allergies Allergen (clinical drug ingredient) Drug/Non Drug Allergy documented on EMR Reaction Allergy Type Onset Date Status trazodone traZODone HCl Unknown Drug Allergy Act roberta codeine Codeine double vision Drug Allergy Act roberta Results Component Value Reference Range Notes HEMOGLOBIN A1C (GLYCOHEMOGLO BIN) Reviewed date:07/17/2024 06:27:16 PM Interpretation: Performing Lab: Notes/Report: HEMOGLOBIN A1C % (HH) 7.3 HEMOGLOBIN A1C (GLYCOHEMOGLO BIN) Reviewed date:05/17/2024 10:57:55 AM Interpretation: Performing Lab: Notes/Report: HEMOGLOBIN A1C (HH) 7.3 Reason For Referral No Information Medications Medication SIG (Take, Route, Frequency, Duration) Notes Start Date End Date Status Farxiga 10 MG 1 tablet Orally Once a day for 30 day(s) Active Aspirin 81 MG 1 tablet Orally Once a day Active Levoxyl 88 MCG 1 tablet on an empty stomach in the morning Orally Once a day Active Simvastatin 20 MG 1 tablet in the even ing Orally Once a day Active Zocor 20 MG 1 tablet in the even ing Orally Once a day Not-Taking Multivitamins Orally Not-Ta jamel Vitamin C Not-Taking Vitamin D 1000 UNIT 1 tablet Orally Once a day Not-Taking ZyrTEC Not-Taking metFORMIN HCl 1000 MG 1 tablet with a me al Orally Once a day for 30 day(s) Active Social History Tobacco Use: Social History Observation Description Date Details (start date - stop date) Never Smoker NA - NA Tobacco Use/Smoking Question Answer Notes Are you a: nonsmoker Additional Findings: Tobacco Non-User Current no n-smoker Alcohol Screen Question Answer Notes Did you have a drink containing alcohol in the p ast year? No Points 0 Interpretation Negative Tobacco use other than smoking: Question Answer Notes Are you an other tobacco user? No Problems Problem Type SNOMED Code ICD Code Onset Dates Problem Status W/U Status Risk Notes Problem Acquired hallux valgus (38852984) Hallux valgus (acquired), left foot (M20.12) Active confirmed Problem Acquired hallux valgus (88716891) Hallux valgus (acquired), right foot (M20.11) Active confirmed Problem Polyneuropathy due to type 2 diabetes mellitus (339867413) Type 2 diabetes mellitus with diabetic polyneuropathy (E11.42) Active confirmed Vital Signs Height 5 ft 2 in in 05/17/2024 Weight 129 lbs 05/17/2024 BMI 23.59 kg/m2 05/17/2024 Procedures Procedure Date Ordered Date Performed Result Body Sit e 83124-BKAV SKIN LESIONS, OVER 4 05/17/2024 N/A Encounters Encounter Location Date Provider Diagnosis [facility] [address] [address] 05/17/2024 Olinda Black Type 2 diabetes mellitus with diabetic polyneuropathy E11.42 ; Metatarsalgia, left foot M77.42 ; Hallux valgus (acquired), left foot M20.12 ; Hallux valgus (acquired), right foot M20.11 ; Metatarsalgia, right foot M77.41 ; Pain in left foot M79.672 and Pain in right foot M79.671 Assessments Encounter Date Diagnosis (ICD Code) Assessment Notes Treatment Notes Treatment Clinical Notes Section Notes 05/17/2024 Metatarsalgia, left foot (ICD-10 - M77.42) 05/17/2024 Type 2 diabetes mellitus with diabetic polyneuropathy (ICD-10 - E11.42) 05/17/2024 Hallux valgus (acquired), left foot (ICD-10 - M20.12) 05/17/2024 Hallux valgus (acquired), right foot (ICD-10 - M20.11) 05/17/2024 Metatarsalgia, right foot (ICD-10 - M77.41) 05/17/2024 Pain in left foot (ICD-10 - M79.672) 05/17/2024 Pain in right foot (ICD-10 - M79.671) Plan Of Treatment Pending Test Test Name Order Date X ray : Foot, left 2V 09/20/2013 X ray : Foot, left 3V 05/15/2022 X ray : Foot, right 3V 05/15/2022 27863-Smeg Destruction, 1-14 02/10/2017 60073-Flmv Destruction, 1-14 03/07/2017 98089-JICD SKIN LESIONS, OVER 4 05/17/20 24 21580-DEOZ SKIN LESIONS, 2 TO 4 05/15/20 22 17602-KDYJ SKIN LESIONS, 2 TO 4 05/15/20 23 Next Appt Details Provider Name:Olinda Winters Rambo , 05/16/2025 10:00:00 AM, [address] [place], [address], Insurance Providers Payer Name Payer Address Payer Phone Subscriber Number Group Number Insured Name Patient Relationship to Insured Coverage Start Date Coverage End Date [employer] [place] [employer]vantage [facility] [address] [place] [address] [phone] [id number] Alayna Bah Self - patient is the insured Medical (General) History Medical History History ICD Code Broken bones Diabetic Sciatica Thyroid disorder Measles Mumps Chicken pox Joint implants/screws Vertigo covid-19 Warts Surgical History Surgery Date(Month/Year) section 01/16/1979 section 01/29/1983 right femur 07/24/1996 tendonitis, left wrist 2011 tendonitis, right wrist 2019 Hospitalization History Reason Date(Month/Year) Cyst removal from scalp 03/05/17 Colonoscopy 02/28/17
--- OUTSIDE RECORDS SUMMARY | 2024-08-27 08:32 | XMS_ITS ---
Author Organization [facility] Address [address] [facility] [place] [address] Care Team Providers Care Hotel Server Name Role Phone Brad Mcbride MD Primary Care Provider Unavailab Dawna Koine Unavailable [phone] Black, Olinda Unavailable [phone] Allergies Allergen (clinical drug ingredient) Drug/Non Drug Allergy documented on EMR Reaction Allergy Type Onset Date Status trazodone traZODone HCl Unknown Drug Allergy Act roberta codeine Codeine double vision Drug Allergy Act roberta REASON FOR VISIT Foot pain, At Risk Footcare Medications Medication SIG (Take, Route, Frequency, Duration) [...] even ing Orally Once a day Active metFORMIN HCl 1000 MG 1 tablet with a me al Orally Once a day for 30 day(s) Active Zocor 20 MG 1 tablet in the even ing Orally Once a day Not-Taking Multivitamins Orally Not-Ta jamel Vitamin C Not-Taking Vitamin D 1000 UNIT 1 tablet Orally Once a day Not-Taking ZyrTEC Not-Taking Social History Tobacco Use: Social History Observation [...] Are you an other tobacco user? No Vital Signs Height 5 ft 2 in in 05/17/2024 Weight 129 lbs 05/17/2024 BMI 23.59 kg/m2 05/17/2024 Procedures Procedure Date Ordered Date Performed Result Body Sit e 13253-NYLY SKIN LESIONS, OVER 4 05/17/2024 N/A Encounters Encounter Location Date Provider Diagnosis [facility] [place] [address] [place] [address] 05/17/2024 Olinda Ricks Type 2 diabetes mellitus with diabetic polyneuropathy E11.42 ; Metatarsalgia, left foot M77.42 ; Hallux valgus (acquired), left foot M20.12 ; Hallux valgus (acquired), right foot M20.11 ; Metatarsalgia, right foot M77.41 ; Pain in left foot M79.672 and Pain in right foot M79.671 Assessments Encounter Date Diagnosis (ICD Code) Assessment Notes Treatment Notes Treatment Clinical Notes Section Notes 05/17/2024 Type 2 diabetes mellitus with diabetic polyneuropathy (ICD-10 - E11.42) 05/17/2024 Metatarsalgia, left foot (ICD-10 - M77.42) 05/17/2024 Hallux valgus (acquired), left foot (ICD-10 - M20.12) 05/17/2024 Hallux valgus (acquired), right foot (ICD-10 - M20.11) 05/17/2024 Metatarsalgia, right foot (ICD-10 - M77.41) 05/17/2024 Pain in left foot (ICD-10 - M79.672) 05/17/2024 Pain in right foot (ICD-10 - M79.671) Plan Of Treatment Pending Test Test Name Order Date 04964-EAON SKIN LESIONS, OVER 4 05/17/20 24 Next Appt Details Follow Up: 1 Year, Reason: Provider Name:Olinda A Rambo , 05/16/2025 10:00:00 AM, [address] [place] [address], [id number], Procedure Notes * Category Sub-Category Detail Notes Keratoma Treatment Parring or Cutting o f Benign Hyperkeratotic Lesion(s) (-57) More than 4 Lesions - The Benign hyperkeratotic lesions, as described in exam, were pared, and/or cut utilizing a sterile 15 blade, tissue nippers, and/or dremel - 97528 Progress Notes * Alayna FLORES LDOB: 2 (74 yo F)Acc No.[id number]:05/17/2024 Progress Note Patient:?Alayna FLORES Provider:?Olinda Ricks DPM :1950???Age:73 Y???Sex:Female D ate:05/17/2024 Address:[address] [place], [place] [address]g[place], [facility], [id number] Pcp:Brad Mcbride MD Subjective: * Chief Complaints: * ???Foot painAt Risk Footcare * HPI: ???Foot Pain:?Nature:?aching, tenderness.?Location?Great toe joint, B/L.?Duration:?several years.?Onset/Cause:?unknown.?Course:?, improved, at 50 %.?Aggrevated:?any pressure, shoes.?Treatments:?change in shoes;, medication ( _aspercream_ )- pt is not wear the dispensed pedag inserts.?Quality/Severity?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denies.?Swollen glands?denies.?Respiratory:?On O xygen?denies.?Pneumonia/pleurisy?denies.?Bronchitis?denies.?Emphysema?denies.?Co ughing?denies.?Cough blood?denies.?Shortness of breath?denies.?Wheezing?denies.?Cardiovascular:?Pacemaker?denies.?MVP?denies.?WPW?denies.?CHF?denies.?Heart attack?denies.?Septal defect?denies.?Rapid beat?denies.?Chest pain ?denies.?Atrial Fib.?denies.?Murmur/Palpitations?denies.?Gastrointestinal:?Hemorrhoids?denies.?Stomach/Abdominal pain?denies.?Dark blood stool?denies.?Irritable bowel ?denies.?Constipation?denies.?Diarrhea?denies.?Vomiting?denies.?Hematology:?Swelling?denies.?Bruising?denies.?Bleeding problem?denies.?Genitourinary:?Blood urine?denies.?Frequent/Painfu/urination/bladder control?denies.?Kidney stones?denies.?Infection (UTI)?denies.?Nephropathy?denies.?Musculoskeletal:?Hammertoes?denies.?Bunions?admits.?Scoliosis/kyphosis?denies.?Muscle cramps / walking?denies.?Generalized aches and pains?admits.?Weakness?denies.?Integ.:?Denny?denies.?Scars?denies.?Corns/calluses?admits.?Ingrown nails?denies.?Painful nails?denies.?Rashes?denies.?Neurologic:?Difficulty sleeping?denies.?Bipolar?denies.?Brain disorder?denies.?Balance t rouble?denies.?Confusion?denies.?Fainting/blackouts?denies.?Headache?denies.?Erick mors?denies.? * Medical History:? * Surgical History:? s ection 01/16/1979cesarean section 01/29/1983right femur 07/24/1996tendonitis, left wrist 2012tendonitis, right wrist 2018 * Hospitalization/Major Diagno stic Procedure:?Colonoscopy 02/28/17Cyst removal from scalp 03/05/17 * Family History:?Mother: dece ased, foot problems , poor circulation, diagnosed with Other malignant neoplasm of unspecified site, Diabetic - NIDDM, Unspecified essential hypertension, Unspecified heart disease, Unspecified cerebral artery occlusion with cerebral infarction, Family history of arthritis.?Father: , diagnosed with Other malignant neoplasm of unspecified site, Unspecified essential hypertension, Unspecified heart disease, Unspecified cerebral artery occlusion with cerebral infarction, Family history of arthritis.?Spouse: alive.? * Social History:?Tobacco Use:?Tobacco Use/Smoking?Are you a:?nonsmoker ?Additional Findings: Tobacco Non-User?Current non-smoker ?Tobacco use other than smoking?Are you an other tobacco user??No ???Drugs/Alcohol:?Drugs?Have you used drugs other than those for medical reasons in the past 12 months??No ?Alcohol Screen?Did you have a drink containing alcohol in the past year??No ?Points?0 ?Interpretation?Negative ???Miscellaneous:?Caffeine: yes. ?Children: yes, 3. ?Exercise: dancing 2-3x per week, walking, sewing, caring for grandchildren. ?Marital status: . 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 * Medications:?TakingmetFORMIN HCl 1000 MG Tablet 1 tablet with a meal Orally Once a day Farxiga 10 MG Tablet 1 tablet Orally Once a day Aspirin 81 MG Tablet Chewable 1 tablet Orally Once a day Levoxyl 88 MCG Tablet 1 tablet on an empty stomach in the morning Orally Once a day Simvastatin 20 MG Tablet 1 tablet in the evening Orally Once a day Taking metFORMIN HCl 1000 MG Tablet 1 tablet with a meal Orally Once a day Taking Farxiga 10 MG Tablet 1 tablet Orally Once a day Taking Aspirin 81 MG Tablet Chewable 1 tablet Orally Once a day Taking Levoxyl 88 MCG Tablet 1 tablet on an empty stomach in the morning Orally Once a day Taking Simvastatin 20 MG Tablet 1 tablet in the evening Orally Once a day Not-Taking/PRNZocor 20 MG Tablet 1 tablet in the evening Orally Once a day Multivitamins Tablet Orally Vitamin C Vitamin D 1000 UNIT Tablet 1 tablet Orally Once a day ZyrTEC Medication List reviewed and reconciled with the patientNot-Taking/PRN Zocor 20 MG Tablet 1 tablet in the evening Orally Once a day Not-Taking/PRN Multivitamins Tablet Orally Not-Taking/PRN Vitamin C Not-Taking/PRN Vitamin D 1000 UNIT Tablet 1 tablet Orally Once a day Not- Taking/PRN ZyrTEC Medication List reviewed and reconciled with the patient * Allergies:?Codeine: double v isiontraZODone HClyes[Allergies Verified] Objective: * Vitals:?Ht:5 ft 2 in, Wt:129 , BMI:23.59, Shoe size:9 narrow, Ht-cm: 157.48 cm, Wt-k.51 kg. * ???Past Orders: Lab:HEMOGLOBIN A1C (GLYCOHEM OGLOBIN) * Collection Date 05/17/2024 04/01/2024 Collection Time 06:26 PM 10:57 AM Order Date 05/17/2024 05/17/2024 HEMOGLOBIN A1C % (HH) 7.3 NR HEMOGLOBIN A1C (HH) NR 7.3 * Examination: ???General Examination: ?GENERAL APPEARANCE:?pleasant, alert, well nourished, well developed, well hydrated, with good attention to hygene/body habitus, and in no acute distress.?ORIENTED:?person,place, and time.?FOOT EXAM:?Footwear Evaluation?Neurological: ?SENSORY:? Neurological exam demonstrates, reduced vibration sensation, 5.07 monofilament test performed at plantar aspects of 5 varied sites per foot shows sensation, B/L.?TINEL'S COMPRESSION:?Negative tarsal tunnel, ryland pedis, and medial calcaneal nerves B/L.?BABINSKI REFLEX:?absent.?Neuroma Pain: ?PALPATION:?No interspace pain noted on palpation.?Vascular: ?DP PULSES (B):?1/4, B/L.?PT PULSES (B):?2/4, B/L.?CAPILLARY FILL TIME:?3 secs. per digit, B/L.?TROPHIC CONDITION-TEXTURE/ELASTICITY/TURGOR/HAIR GROWTH (B):?normal, B/L.?TEMPERTURE GRADIENT (C):?warm to cool, proximal to distal, B/L.?PIGMENTATION:?normal, B/L.?EDEMA (C):?no edema.?TELANGECTASIA:?absent.?VARICOSITIES:?absent.?Dermatologic: ?SKIN FINDINGS:? Skin exam reveals Keratotic lesion(s) located at, Medial plantar, IPJ, TA, T5, SUB MTH (s), 1, B/L,SUB MTH (s),2,Left.?Orthopedic: ?MUSCLE STRENGTH:?5/5 all groups in a symmetrical fashion , B/L.?GAIT ABNORMALITY:?pronated, abducted, B/L.?BUNION:? Medially prominent 1st MPJ, Dorsal prominent 1st MPJ , LEFT, Lateral tracking 1st MPJ incompletely reducable, Limited 1st MPJ Plantar ROM, Pain assoc with 1st MPJ ROM , at end range.?FOOTWEAR:?shoe gear properties exacerbate patients foot/toe deformity, Non-Diabetic with no OT.?Nails: ?NAILS are:? Elongated, overgrown, dystrophic, lytic, greater than 3mm thick, discolored and friable with crumbly malodorous subungual debris, with dull to no pain on palpation due to neuropathy, T1, T3, T4, T9 red nail lebanese.?Ophthalmology Referral: ?DIABETES EYE EXAM? Assessment: * Assessment: 1.?Metatarsalgia, left foot - M77.42 (Primary)???2.?Type 2 diabetes mellitus with diabetic polyneuropathy - E11.42???3.?Hallux valgus (acquired), left foot - M20.12???4.?Hallux valgus (acquired), right foot - M20.11???5.?Metatarsalgia, right foot - M77.41???6.?Pain in left foot - M79.672???7.?Pain in right foot - M79.671??? Plan: * Treatment: * Procedures:?Keratoma Treatment:?Parring or Cutting of Benign Hyperkeratotic Lesion(s)?(-57) More than 4 Lesions - The Benign hyperkeratotic lesions, as described in exam, were pared, and/or cut utilizing a sterile 15 blade, tissue nippers, and/or dremel - 44098.? * Procedure Codes:?36555 TRIM SKIN LESIONS, OVER 4, Modifiers: XS * Preventive Medicine:? ??Counseling:?Discussion:?-13: Office or other outpatient visit for the evaluation and management of an established patient, which required a medically appropriate history and/or examination and LOW level of DECISION MAKING for: 1 STABLE ACUTE UNCOMPLICATED PROBLEM, 2 OR MORE MINOR PROBLEMS, OR 1 STABLE CHRONIC PROBLEM, THAT POSE(S) A LOW RISK FOR MORBIDITY/MORTALITY. The visit on the day of the encounter encompassed interpreting the data and educating the patient as to the nature of their condition, treatment options available according to their individual PMH, meds, allergies, and overall health/living conditions, as well as any potential risks or complications that may occur from a failure to adhere to, and participate in, the recommended course of therapy. The discussion included a complete verbal, and/or written explanation of the examination results, any x-rays taken, the proposed diagnosis, and outline of the treatment plan. A schedule for future care needs was also explained. The patient verbalized an understanding of the instructions at this time and agreed to be an active participant in their treatment. If the patient should think of any questions or concerns after the visit, I have encouraged the patient to call the office.?BioMech.:?I discussed the Pts foot biomechanics with them and how it relates to their problem, Recommended Topical analgesics including biofreeze/aspercream/Voltaren gel, The patient and I reviewed the types of shoes they should be wearing; my recommendation includes obtaining a shoe with a good firm sole, plenty of toe room, and proper arch support.?Orthotic Dispensing:?Discussed the inserts that were dispensed previously and the effect they can have on pts feet. The patient was instructed to gradually increase the amount of time they are wearing the orthoses, starting with one hour the first day and thereon progressively increasing the amount of time used until they are comfortable to be worn all day and with all activities. They were asked to call the office if any signs of skin irritation were noted including redness, blistering or callous formation. The patient verbally indicated a full understanding of all the above information and will try the breaking in oeriod with them as discussed.?Shoe Gear Counseling:?The patient deferred recommended diabetic shoes with heat moled inserts.? ??Screening/Special Tests:?Fall Risk?Screening:?No falls in the past year ?FALLS: Screening for Future Fall Risk?Have you had any falls with injury in the past year??No * Follow Up:?1 Year * Images: * Sign off status: Completed true * Provider:?Olinda Ricks DPM Date:?2023 Generated for Ayan fleming/Mehdi/eTransmitting on:?08/27/2024 08:31 AM EST History and Physical Notes * HPI (History of Present Illness) Category Sub-Category Detail Notes Category Not es At Risk footcare Pt States Last PCP Visit: Date: 3 Foot Pain Aggrevated: any pressure, shoes Onset/Cause: unknown Course: , improved, at 50 % Duration: several years Nature: aching, tenderness Treatments: change in shoes;, me dication ( _aspercream_ )- pt is not wear the dispensed pedag inserts 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 Location Great toe joint, B/L Examination Category Sub-Category Detail Notes Category Not es Neuroma Pain PALPATION: No interspace pain noted on palpation Neurological SENSORY: Neurological exa m demonstrates, reduced vibration sensation, 5.07 monofilament test performed at plantar aspects of 5 varied sites per foot shows sensation, B/L BABINSKI REFLEX: absent TINEL'S COMPRESSION: Negative tarsal katy iraida, ryland pedis, and medial calcaneal nerves B/L Dermatologic SKIN FINDINGS: Skin exam reveal s Keratotic lesion(s) located at, Medial plantar, IPJ, TA, T5, SUB MTH (s), 1, B/L,SUB MTH (s),2,Left Orthopedic GAIT ABNORMALITY: pronated, abducted, B/L BUNION: Medially prominent 1 st MPJ, Dorsal prominent 1st MPJ , LEFT, Lateral tracking 1st MPJ incompletely reducable, Limited 1st MPJ Plantar ROM, Pain assoc with 1st MPJ ROM , at end range FOOTWEAR: shoe gear properties exacerbate patients foot/toe deformity, Non- Diabetic with no OT MUSCLE STRENGTH: 5/5 all groups in a symmetrical fashion , B/L General Examination GENERAL APPEARANCE: pleasant , alert, well nourished, well developed, well hydrated, with good attention to hygene/body habitus, and in no acute distress FOOT EXAM: Lower Extremity Neurological Exa m performed:: Yes Visual exam of foot performed:: Yes Date: 04/16/2024 Sensory testing performed:: sensations d iminished Sensory and motor testing performed:: se nsations diminished Pedal pulse taking performed:: 2+ ORIENTED: person,place, and ti me Footwear Evaluation Footwear Evaluation performe d:: Yes Ophthalmology Referral DIABETES EYE EXAM Procedure Perform ed:: Yes ?Date of Exam Performed: 09/09/2023 Findings of Diabetic Eye Exam:: no retin opathy Vascular DP PULSES (B): 1/4, B/L PT PULSES (B): 2/4, B/L CAPILLARY FILL TIME: 3 secs. per digit, B/L TEMPERTURE GRADIENT (C): warm to cool, p roximal to distal, B/L TROPHIC CONDITION-TEXTURE/ELASTICITY/TURGOR/HAIR GROWTH (B): normal, B/L EDEMA (C): no edema TELANGECTASIA: absent VARICOSITIES: absent PIGMENTATION: normal, B/L Nails NAILS are: Elongated, overg rown, dystrophic, lytic, greater than 3mm thick, discolored and friable with crumbly malodorous subungual debris, with dull to no pain on palpation due to neuropathy, T1, T3, T4, T9 red nail lebanese
--- OUTSIDE RECORDS SUMMARY | 2024-08-27 08:32 | XMS_ITS ---
Author Organization [facility] Address [address] [facility] [place] [address] Care Team Providers Care Feather Separator Name Role Phone Brad Mcbride MD Primary Care Provider Unavailab Candace Ko Unavailable [phone] Anurag Jang Unavailable [phone] Allergies Allergen (clinical drug ingredient) Drug/Non Drug Allergy documented on EMR Reaction Allergy Type Onset Date Status trazodone traZODone HCl Unknown Drug Allergy Act roberta codeine Codeine double vision Drug Allergy Act roberta Medications Medication SIG (Take, Route, Frequency, Duration) Notes Start Date End Date Status Zocor 20 MG 1 tablet in the even ing Orally Once a day Not-Taking Vitamin C Not-Taking Multivitamins Orally Not-Ta jamel ZyrTEC Not-Taking Vitamin D 1000 UNIT 1 tablet Orally Once a day Not-Taking Aspirin 81 MG 1 tablet Orally Once a day Active Farxiga 10 MG 1 tablet Orally Once a day for 30 day(s) Active Levoxyl 88 MCG 1 tablet on [...] Signs Height 5 ft 2 in in 05/15/2023 Weight 129 lbs 05/15/2023 BMI 23.59 kg/m2 05/15/2023 Procedures Procedure Date Ordered Date Performed Result Body Sit e 40872-DGYN SKIN LESIONS, 2 TO 4 05/15/2023 N/A Encounters Encounter Location Date Provider Diagnosis [facility] [address] [place] [address] 05/15/2023 Anurag Jang Type 2 diabetes mellitus with diabetic polyneuropathy E11.42 ; Hallux valgus (acquired), left foot M20.12 ; Hallux valgus (acquired), right foot M20.11 ; Metatarsalgia, left foot M77.42 ; Metatarsalgia, right foot M77.41 ; Pain in left foot M79.672 and Pain in right foot M79.671 Assessments Encounter Date Diagnosis (ICD Code) Assessment Notes Treatment Notes Treatment Clinical Notes Section Notes 05/15/2023 Type 2 diabetes mellitus with diabetic polyneuropathy (ICD-10 - E11.42) 05/15/2023 Hallux valgus (acquired), left foot (ICD-10 - M20.12) 05/15/2023 Hallux valgus (acquired), right foot (ICD-10 - M20.11) 05/15/2023 Metatarsalgia, left foot (ICD-10 - M77.42) 05/15/2023 Metatarsalgia, right foot (ICD-10 - M77.41) 05/15/2023 Pain in left foot (ICD-10 - M79.672) 05/15/2023 Pain in right foot (ICD-10 - M79.671) Plan Of Treatment Pending Test Test Name Order Date 08358-KUXQ SKIN LESIONS, 2 TO 4 05/15/20 23 Next Appt Details Follow Up: 1 Year, Reason: Provider Name:Olinda Ricks , 05/16/2025 10:00:00 AM, [address] [place] [address], [address], Procedure Notes * Category Sub-Category Detail Notes Keratoma Treatment Parring or Cutting o f Benign Hyperkeratotic Lesion(s) 52041 ( 2-4 Lesions ) - The Benign hyperkeratotic lesions, as described above were pared, and/or cut utilizing a sterile 15 blade, tissue nippers, and/or dremel Progress Notes * Alayna FLORES LDOB: 2 (72 yo F)Acc No.[id number]:05/15/2023 Progress Note Patient:?Alayna Flores Provider:?Anurag Jang DPM :1950???Age:72 Y???Sex:Female D ate:05/15/2023 Address:[address] [place], [place] [address] , [facility] Pcp:Brad Mcbride MD Subjective: * Chief Complaints: * ??? 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denies.?Swollen glands?denies.?Respiratory:?On Oxygen?denies.?Pneumonia/pleurisy?denies.?Bronchitis?denies.?Emphysema?denies.?C oughing?denies.?Cough blood?denies.?Shortness of breath?denies.?Wheezing?denies.?Cardiovascular:?Pacemaker?denies.?MVP?denies.?WPW?denies.?CHF?denies.?Heart attack?denies.?Septal defect?denies.?Rapid beat?denies.?Chest pain ?denies.?Atrial Fib.?denies.?Murmur/Palpitations?denies.?Gastrointestinal:?Hemorrhoids?denies.?Stomach/Abdominal pain?denies.?Dark blood stool?denies.?Irritable bowel ?denies.?Constipation?denies.?Diarrhea?denies.?Vomiting?denies.?Hematology:?Swelling?denies.?Bruising?denies.?Bleeding problem?denies.?Genitourinary:?Blood urine?denies.?Frequent/Painfu/urination/bladder control?denies.?Kidney stones?denies.?Infection (UTI)?denies.?Nephropathy?denies.?Musculoskeletal:?Hammertoes?denies.?Bunions?admits.?Scoliosis/kyphosis?denies.?Muscle cramps / walking?denies.?Generalized aches and pains?admits.?Weakness?denies.?Integ.:?Denny?denies.?Scars?denies.?Corns/calluses?admits.?Ingrown nails?denies.?Painful nails?denies.?Rashes?denies.?Neurologic:?Difficulty sleeping?denies.?Bipolar?denies.?Brain disorder?denies.?Balance trouble?denies.?Confusion?denies.?Fainting/blackouts?denies.?Headache?denies.?Tr emors?denies.? * Medical History:? * Surgical History:? s ection 01/16/1979cesarean section 01/29/1983right femur 07/24/1996tendonitis, left wrist 2011tendonitis, right wrist 2018 * Hospitalization/Major Diagno stic Procedure:?Colonoscopy 02/28/17Cyst removal from scalp 03/05/17 * Family History:?Mother: dece ased, foot problems , poor circulation, diagnosed with Family history of arthritis, Diabetic - NIDDM, Unspecified essential hypertension, Unspecified heart disease, Unspecified cerebral artery occlusion with cerebral infarction, Other malignant neoplasm of unspecified site.?Father: , diagnosed with Family history of arthritis, Unspecified essential hypertension, Unspecified heart disease, Unspecified cerebral artery occlusion with cerebral infarction, Other malignant neoplasm of unspecified site.?Spouse: alive.? * Social History:?Tobacco Use:?Tobacco Use/Smoking?Are you [...] caring for grandchildren. ?Marital status: . 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 * Medications:?TakingmetFORMIN HCl 1000 MG Tablet 1 tablet with a meal Orally Once a dayFarxiga 10 MG Tablet 1 tablet Orally Once a dayAspirin 81 MG Tablet Chewable 1 tablet Orally Once a dayLevoxyl 88 MCG Tablet 1 tablet on an empty stomach in the morning Orally Once a daySimvastatin 20 MG Tablet 1 tablet in the evening Orally Once a dayTaking metFORMIN HCl 1000 MG Tablet 1 tablet with a meal Orally Once a dayTaking Farxiga 10 MG Tablet 1 tablet Orally Once a dayTaking Aspirin 81 MG Tablet Chewable 1 tablet Orally Once a dayTaking Levoxyl 88 MCG Tablet 1 tablet on an empty stomach in the morning Orally Once a dayTaking Simvastatin 20 MG Tablet 1 tablet in the evening Orally Once a dayNot-Taking/PRNZocor 20 MG Tablet 1 tablet in the evening Orally Once a dayMultivitamins Tablet Orally Vitamin C Vitamin D 1000 UNIT Tablet 1 tablet Orally Once a dayZyrTEC Medication List reviewed and reconciled with the patientNot-Taking/PRN Zocor 20 MG Tablet 1 tablet in the evening Orally Once a dayNot-Taking/PRN Multivitamins Tablet Orally Not-Taking/PRN Vitamin C Not- Taking/PRN Vitamin D 1000 UNIT Tablet 1 tablet Orally Once a dayNot-Taking/PRN ZyrTEC Medication List reviewed and reconciled with the patient * Allergies:?Codeine: double v isiontraZODone HClyes[Allergies Verified] Objective: * Vitals:?Ht: 5 ft 2 in, Wt:12 9, BMI:23.59, Shoe size:9 narrow. * ???Past Orders: ???Lab:HEMOGLOBIN A1C (GLYCO HEMOGLOBIN) (Order Date - 05/15/2022) (Collection Date - 03/25/2022) ? Value Reference Range ?HEMOGLOBIN A1C (HH) 7.0 * Examination: ???General Examination: ?GENERAL APPEARANCE:?pleasant, alert, well nourished, well developed, well hydrated, with good attention to hygene/body habitus, and in no acute distress.?ORIENTED:?person,place, and time.?Neurological: ?SENSORY:? Neurological exam demonstrates, reduced vibration sensation, 5.07 monofilament test performed at plantar aspects of 5 varied sites per foot shows sensation, B/L.?TINEL'S COMPRESSION:?Negative tarsal tunnel, ryland pedis, and medial calcaneal nerves B/L.?BABINSKI REFLEX:?absent.?Neuroma Pain: ?PALPATION:?No interspace pain noted on palpation.?Vascular: ?DP PULSES:?07/10, B/L.?PT PULSES:?08/10, B/L.?CAPILLARY FILL TIME:?3 secs. per digit, B/L.?SKIN TEMPERTURE GRADIENT OF THE LOWER EXTERMITIES:?warm to cool, proximal to distal, B/L.?HAIR GROWTH/TEXTURE/ELASTICITY/TURGOR:?normal, B/L.?PIGMENTATION:?normal, B/L.?EDEMA:?no edema.?TELANGECTASIA:?absent.?VARICOSITIES:?absent.?Dermatologic: ?SKIN FINDINGS:? Skin exam reveals Keratotic lesion(s) located at, Medial plantar, IPJ, TA, T5, SUB MTH (s), 1, B/L .?Orthopedic: ?MUSCLE STRENGTH:?5/5 all groups in a symmetrical fashion , B/L.?GAIT ABNORMALITY:?pronated, abducted, B/L.?BUNION:?Medially prominent 1st MPJ, Dorsal prominent 1st MPJ , LEFT, Lateral tracking 1st MPJ incompletely reducable, Limited 1st MPJ Plantar ROM, Pain assoc with 1st MPJ ROM , at end range.?Nails: ?NAILS are:? Elongated, overgrown, dystrophic, lytic, greater than 3mm thick, discolored and friable with crumbly malodorous subungual debris, with dull to no pain on palpation due to neuropathy, T1, T3, T4, T9.? Assessment: * Assessment: 1.?Hallux valgus (acquired), left foot - M20.12?2.?Type 2 diabetes mellitus with diabetic polyneuropathy - E11.42 (Primary)?3.?Hallux valgus (acquired), right foot - M20.11 4.?Metatarsalgia, left foot - M77.42?5.?Metatarsalgia, right foot - M77.41?6.?Pain in left foot - M79.672?7.?Pain in right foot - M79.671? Plan: * Treatment: * Procedures:?Keratoma Treatment:?Parring or Cutting of Benign Hyperkeratotic Lesion(s)?92572 ( 2-4 Lesions ) - The Benign hyperkeratotic lesions, as described above were pared, and/or cut utilizing a sterile 15 blade, tissue nippers, and/or dremel.? * Procedure Codes:?01890 TRIM SKIN LESIONS, 2 TO 4, Modifiers: XS * Preventive Medicine:? ??Counseling:?Discussion:?-14: Office or other outpatient visit for the evaluation and management of an established patient, which required a medically appropriate history and/or examination and MODERATE level of DECISION MAKING for: 1 OR MORE CHRONIC PROBLEM(S) THATS WORSENING, 2 STABLE CHRONIC PROBLEMS, A NEWLY DIAGNOSED PROBLEM WITH UNCERTAIN PROGNOSIS, AN ACUTE COMPLICATED INJURY WITH MULTIPLE TREATMENT OPTIONS, OR AN ACUTE PROBLEM WITH ACCOMPANYING SYSTEMIC SYMPTOMS, THAT POSE(S) A MODERATE RISK OF MORBIDITY. THIS CONDITION MAY ALSO INCLUDE RX DRUG MANAGEMENT, OR A DECISON FOR MINOR SURGERY. The visit on the day of the [...] have encouraged the patient to call the office.?Shoe Gear Counseling:?The patient and I reviewed the types of shoes they should be wearing. My recommendation included obtaining a well-fitted shoe with a good supportive, non-foldable nor twistable sole, plenty of toe/room for the forefoot, and proper arch support. Based on todays examination, I recommended the patient look for new shoes, by having their feet professionally measured. We discussed that generally the best time of the day for a shoe fitting is the afternoon. Different shoes types and brands to best match the patients occupation and vocation were discussed. Specific brand selection will be up to the patient, their individual foot condition/deformities, and fit. The patient and I reviewed the standard new shoe break in period by wearing them for a few hours a day while checking for redness or sores as wear time is increased. The patient verbally confirmed to understanding the information discussed--continue with sas shoes for arch support and for hav.? * Follow Up:?1 Year * Images: * Sign off status: Completed true * Provider:?Anurag Jang DPM Date:? 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 Location Great toe joint, B/L [...] IPJ, TA, T5, SUB MTH (s), 1, B/L Orthopedic GAIT ABNORMALITY: pronated, abducted, B/L BUNION: Medially prominent 1 st MPJ, Dorsal prominent 1st MPJ , LEFT, Lateral tracking 1st MPJ incompletely reducable, Limited 1st MPJ Plantar ROM, Pain assoc with 1st MPJ ROM , at end range MUSCLE STRENGTH: 5/5 all groups in a symmetrical fashion , B/L General Examination GENERAL APPEARANCE: pleasant , alert, well nourished, well developed, well hydrated, with good attention to hygene/body habitus, and in no acute distress ORIENTED: person,place, and ti me Vascular DP PULSES (B): 1/4, B/L PT [...]
[2024-08-27 10:35] LABS: Estimated Average Glucose 177 mg/dL; Hemoglobin A1C 239.8366 umol/L; Hemoglobin A1c % 7.8 % (<6.0); Total Hemoglobin (HGBA1C) 3900.4996 umol/L
[2024-08-27 10:43] LABS: Alanine Aminotransferase 21 U/L (0-31); Aspartate Amino Transferase 25 U/L (5-31); Estimated Glomerular Filt Rate > 60
[2024-08-27 11:21] LABS: Creatinine Urine 68.77 mg/dL
== END 2024-08-27 08:21 | disposition home or self-care (01) ==
LOC: HO.HMGCLDS 08:20
PROVIDERS: PCP Family Medicine; Visit Provider Family Medicine
DX: E78.00 Pure hypercholesterolemia, unspecified (principal); E11.9 Type 2 diabetes mellitus without complications; E03.9 Hypothyroidism, unspecified
CPT/HCPCS: 36415; 82043; 82550; 82565; 82570; 83036; 84439; 84443; 84450; 84460

== ENCOUNTER 2024-10-06 11:42 | Outpatient (REF) | payer MEDICARE, SELFPAY ==
--- OUTSIDE RECORDS SUMMARY | 2024-10-06 14:18 | XMS_ITS ---
Author Organization [facility] Address [address] [place] [address] Care Team Providers Care Atomic Physics Professor Name Role Phone Reed ACKERMAN, Brad Primary Care Provider Unavailab Candace Ko Unavailable [phone] Anurag Jang Unavailable [phone] REASON FOR VISIT /tamara Encounters Encounter Location Date Provider Diagnosis [address] [address] 05/17/2024 Anurag Jang Plan Of Treatment Next Appt Details Provider Name:Olinda Ricks , 05/16/2025 10:00:00 AM, [address] [place] [address], [address], Progress Notes * ARIANNEJYOTHIKarenRutl LDOB: 2 (74 yo F)Acc No.[id number]:05/17/2024 Progress Note Patient:?Alayna FLORES Provider:?Anurag Jang DPM :1950???Age:73 Y???Sex:Female D ate:05/17/2024 Address:[address] [place] Pcp:Brad Mcbride MD Subjective: * Chief Complaints: [...] DPM Date:? 024 Generated for Ayan fleming/Mehdi/Roz on:?10/06/2024 02:17 PM EDT
--- OUTSIDE RECORDS SUMMARY | 2024-10-06 14:18 | XMS_ITS ---
Author Organization [facility] Address [address] [facility] [place] [address] Care Team Providers Care Coil Winding Machines Set Up Mechanic Name Role Phone Brad Mcbride MD Primary Care Provider Unavailab Candace Ko Unavailable [phone] Anurag Jang Unavailable [phone] Allergies Allergen (clinical drug ingredient) Drug/Non Drug [...] Ordered Date Performed Result Body Sit e 04538-RHGW SKIN LESIONS, 2 TO 4 05/15/2023 N/A Encounters Encounter Location Date Provider Diagnosis [facility] [place] [address] [place] [address] 05/15/2023 Anurag Jang Type 2 diabetes mellitus [...] Treatment Pending Test Test Name Order Date 68095-AJWS SKIN LESIONS, 2 TO 4 05/15/20 23 Next Appt Details Follow Up: 1 Year, Reason: Provider Name:Olinda Ricks , 05/16/2025 10:00:00 AM, [address] [place] [address], [address], Procedure Notes * Category Sub-Category Detail Notes Keratoma Treatment Parring or Cutting o f Benign Hyperkeratotic Lesion(s) 04111 ( 2-4 Lesions ) - The Benign hyperkeratotic lesions, as described above were pared, and/or cut utilizing a sterile 15 blade, tissue nippers, and/or dremel Progress Notes * Alayna FLORES LDOB: 2 (72 yo F)Acc No.[id number]:05/15/2023 Progress Note Patient:?Alayna Flores Provider:?Anurag Jang DPM :1950???Age:72 Y???Sex:Female D ate:05/15/2023 Address:[address] [place], [place] [address] , [facility] Pcp:Brad Mcbride MD Subjective: * Chief Complaints: * ??? 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 ?Marital status: . 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 * Medications:?TakingmetFORMIN HCl 1000 MG Tablet 1 [...] Procedures:?Keratoma Treatment:?Parring or Cutting of Benign Hyperkeratotic Lesion(s)?20692 ( 2-4 Lesions ) - The Benign hyperkeratotic lesions, as described above were pared, and/or cut utilizing a sterile 15 blade, tissue nippers, and/or dremel.? * Procedure Codes:?31732 TRIM SKIN LESIONS, 2 TO 4, Modifiers: [...] DPM Date:? 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
--- OUTSIDE RECORDS SUMMARY | 2024-10-06 14:18 | XMS_ITS ---
Author Organization [facility] Address [address] [facility] [place] [address] Care Team Providers Care Director Of Entertainment Name Role Phone Brad Mcbride MD Primary Care Provider Unavailab Candace Ko Unavailable [phone] Black, Olinda Unavailable [phone] Allergies Allergen (clinical drug ingredient) Drug/Non Drug [...] Ordered Date Performed Result Body Sit e 89676-FMUZ SKIN LESIONS, OVER 4 05/17/2024 N/A Encounters Encounter Location Date Provider Diagnosis [facility] [address] [place] [address] 05/17/2024 Olinda Ricks Type 2 diabetes mellitus [...] Treatment Pending Test Test Name Order Date 01569-SUIG SKIN LESIONS, OVER 4 05/17/20 24 Next Appt Details Follow Up: 1 Year, Reason: Provider Name:Olinda A Rambo , 05/16/2025 10:00:00 AM, [address] [place] [address], [address], Procedure Notes * Category Sub-Category Detail Notes Keratoma Treatment Parring or Cutting o f Benign Hyperkeratotic Lesion(s) (-57) More than 4 Lesions - The Benign hyperkeratotic lesions, as described in exam, were pared, and/or cut utilizing a sterile 15 blade, tissue nippers, and/or dremel - 66243 Progress Notes * Alayna FLORES LDOB: 2 (74 yo F)Acc No.[id number]:05/17/2024 Progress Note Patient:?Alayna FLORES Provider:?Olinda Ricks DPM :1950???Age:73 Y???Sex:Female D ate:05/17/2024 Address:[address] [place], [place] [address], [facility], [facility] Pcp:Bard Mcbride MD Subjective: * Chief Complaints: * ???Foot painAt Risk Footcare * HPI: ???Foot Pain:?Nature:?aching, tenderness.?Location?Great toe joint, B/L.?Duration:?several years.?Onset/Cause:?unknown.?Course:?, improved, at 50 %.?Aggrevated:?any pressure, shoes.?Treatments:?change in shoes;, medication ( _aspercream_ )- pt is not wear the dispensed pedag inserts.?Quality/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 ?Marital status: . 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 * Medications:?TakingmetFORMIN HCl 1000 MG Tablet 1 [...] and in no acute distress.?ORIENTED:?person,place, and time.?FOOT EXAM:?Lower Extremity Neurological Exam performed:?Yes ?Visual exam of foot performed:?Yes ?Date?04/16/2024 ?Sensory testing performed:?sensations diminished ?Sensory and motor testing performed:?sensations diminished ?Pedal pulse taking performed:?2+ ?Footwear Evaluation?Footwear Evaluation performed:?Yes?Neurological: ?SENSORY:? Neurological exam demonstrates, reduced vibration sensation, [...] neuropathy, T1, T3, T4, T9 red nail faroese.?Ophthalmology Referral: ?DIABETES EYE EXAM?Procedure Performed:?Yes ?Date of Exam Performed?09/09/2023 ?Findings of Diabetic Eye Exam:?no retinopathy??? Assessment: * Assessment: 1.?Metatarsalgia, left foot - [...] 15 blade, tissue nippers, and/or dremel - 17250.? 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
--- OUTSIDE RECORDS SUMMARY | 2024-10-06 14:18 | XMS_ITS | Patient Health Record ---
Author Organization [facility] Address [address] [facility] [address] Care Team Providers Care Regular Senior Care Provider Name Role Phone Brad Mcbride MD Primary Care Provider Unavailab Candace Ko Unavailable [phone] Rambo, Olinda Unavailable [phone] Anurag Jang Unavailable [phone] Allergies Allergen (clinical drug ingredient) Drug/Non Drug Allergy documented on EMR Reaction Allergy Type Onset Date Status trazodone traZODone HCl Unknown Drug Allergy Act roberta codeine Codeine double vision Drug Allergy Act roberta Results Component Value Reference Range Notes HEMOGLOBIN A1C (GLYCOHEMOGLO BIN) Reviewed date:05/17/2024 10:57:55 AM Interpretation: Performing Lab: Notes/Report: HEMOGLOBIN A1C (HH) 7.3 HEMOGLOBIN A1C (GLYCOHEMOGLO BIN) Reviewed date:07/17/2024 06:27:16 PM Interpretation: Performing Lab: Notes/Report: HEMOGLOBIN A1C % (HH) 7.3 Reason For Referral No Information [...] Status Risk Notes Problem Acquired hallux valgus (60523261) Hallux valgus (acquired), left foot (M20.12) Active confirmed Problem Acquired hallux valgus (65907308) Hallux valgus (acquired), right foot (M20.11) Active confirmed Problem Polyneuropathy due to type 2 diabetes mellitus (473352684) Type 2 diabetes mellitus with diabetic polyneuropathy (E11.42) Active confirmed Vital Signs Height 5 ft 2 in in 05/17/2024 Weight 129 lbs 05/17/2024 BMI 23.59 kg/m2 05/17/2024 Procedures Procedure Date Ordered Date Performed Result Body Sit e 74753-LDTN SKIN LESIONS, OVER 4 05/17/2024 N/A Encounters Encounter Location Date Provider Diagnosis [facility] [address] [address] 05/17/2024 Olinda Black Type 2 diabetes mellitus [...] X ray : Foot, right 3V 05/15/2022 05740-Yowo Destruction, 1-14 02/10/2017 57583-Gvrx Destruction, 1-14 03/07/2017 30833-XQWM SKIN LESIONS, OVER 4 05/17/20 24 67749-OROE SKIN LESIONS, 2 TO 4 05/15/20 22 02258-MMBI SKIN LESIONS, 2 TO 4 05/15/20 23 Next Appt Details Provider Name:Olinda Winters Rambo , 05/16/2025 10:00:00 AM, [address] [place], [address], Insurance Providers Payer Name Payer Address Payer Phone Subscriber Number Group Number Insured Name Patient Relationship to Insured Coverage Start Date Coverage End Date [employer] [place] [employer] Advantage [facility] [address] [place] [address] [phone] [id number] Alayna Bah Self - patient is the [...]
== END 2024-10-06 11:43 | disposition home or self-care (01) ==
LOC: HO.MAMMO 11:42
PROVIDERS: PCP Family Medicine; Visit Provider Family Medicine
DX: Z12.31 Encounter for screening mammogram for malignant neoplasm of breast (principal)
CPT/HCPCS: 77063; 77067

== ENCOUNTER → 2024-10-06 12:00 | Outpatient (BNV) | payer MEDICARE, SELFPAY | PROVIDERS: PCP Family Medicine; Visit Provider Internal Medicine | DX: Z12.31 Encounter for screening mammogram for malignant neoplasm of breast (principal) | CPT/HCPCS: 77063; 77067 ==

== ENCOUNTER 2025-03-14 16:47 | Outpatient (AMB) | payer MEDICARE, SELFPAY ==
--- OUTSIDE RECORDS SUMMARY | 2024-05-17 06:00 | XMS_ITS ---
Author Organization [facility] Address [address] [place] [address] Care Team Providers Care Budget Controller Name Role Phone Reed ACKERMAN, Brad Primary Care Provider Unavailab Candace Ko Unavailable [phone] Anurag Jang Unavailable [phone] REASON FOR VISIT /tamara Encounters Encounter Location Date Provider Diagnosis [address] [address] 05/17/2024 Anurag Jang Plan Of Treatment Next Appt Details Provider Name:Olinda Ricks , 05/16/2025 10:00:00 AM, [address] [place] [address], [address], Progress Notes * Alayna FLORES LDOB: 2 (74 yo F)Acc No.[id number]:05/17/2024 Progress Note Patient: Alayna ARELLANO Provider: Thierno Jang DPM :1950 A ge:73 Y S ex:Female Date:05/17/2024 Address:[address] [place] Pcp:Brad Mcbride MD Subjective: * Chief Complaints: [...] 07/17/2023 Generated for Ayan Hughes on: 0 03/14/2025 06:49 PM EDT
[2025-03-14 17:04] VITALS: BP 128/76; PULSE 62; TEMP 36.7; O2SAT 99; BMI 24.7
--- NOTE | 2025-03-14 17:04 | MHC.PC.OV ---
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: No Accompanied by: Self / Same As Patient Allergies codeine (CODEINE) Allergy (Mild, Verified 03/17/25 10:15) DOUBLE VISION Codeine Phosphate Allergy (Unknown, Uncoded 03/14/25 17:05) Unknown Medication List - Last Reconciled 03/21/25 by LISA Anglin ascorbic acid (vitamin C) mg PO aspirin 81 mg PO DAILY cetirizine (Allergy Relief (cetirizine)) 10 mg PO DAILY PRN cholecalciferol (vitamin D3) 25 mcg PO DAILY coQ10 (ubiquinol) (Qunol Jem CoQ10) 100 mg PO DAILY dapagliflozin propanediol (Farxiga) 10 mg PO DAILY glipizide 2.5 mg PO DAILY levothyroxine (Synthroid) 100 mcg PO DAILY magnesium 250 mg PO DAILY meloxicam 15 mg PO DAILY metformin 1,000 mg PO DAILY simvastatin 20 mg PO BEDTIME tizanidine 4 mg PO BEDTIME PRN Tobacco use date assessed: 03/14/25 Fall risk assessment: No Falls in past year Last assessed Fall Risk: 03/14/25 Dental Screening Dental Screen Date: 03/14/25 Did you have a dental visit in the last 12 months?: Yes Did you have a dental problem in the last 6 months where you did not have access to dental care?: No HPI HPI Comments History of Present Illness Details The patient is a 74-year-old female with T2DM, hypothyroidism, AR and Hyperlipidemia here presenting with riight shoulder pain. She was a prior patient of Dr. Mcbride. The shoulder pain began on Friday when the patient was cleaning the tub and felt a pop in her right shoulder while putting pressure on it. The pain was described as excruciating, similar to a bad bruise, and worsened with certain movements, causing a burning sensation. The pain radiated to the elbow and neck. 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 Previous imaging showed arthritis changes in the left shoulder. The patient has a history of diabetes mellitus, with an A1c of 7.8 as of the last blood work in August. She is currently on Farxiga and metformin for diabetes management and has consulted with a refrigeration service technician for dietary guidance. The patient acknowledges occasional dietary indiscretions but strives to maintain control over her condition. The patient also has hypothyroidism, managed with Levoxyl at a dose of 88 mcg. Her thyroid levels were slightly off during the last check in August, with a TSH level of 6.8. Patient has an appointment to establish care with Dr. Farmer on 03/17 along with her . [facility] Medical History (Updated 03/21/25 @ 07:11 by LISA Anglin) Hypothyroidism Right shoulder pain Family History (Updated 03/14/25 @ 17:17 by Sharda Wilkes MA) Mother No problems noted. Father No problems noted. Social History Housing: House Patient Tobacco Use Status: Never used Tobacco e-Cigarette/Vaping Use: Never Used service: No Current occupational status: employed Cognitive needs: No Hearing needs: No Vision needs: Yes (reading glasses) Questionnaire PHQ-9 Over the last 2 weeks, how often have you been bothered by any of the following problems? 1. Little interest or pleasure in doing things: not at all 2. Feeling down, depressed, or hopeless: several days (sometimes) 3. Trouble falling or staying asleep, or sleeping too much: not at all 4. Feeling tired or having little energy: not at all 5. Poor appetite or overeating: not at all 6. Feeling bad about yourself - or that you are a failure or have let yourself or your family down: not at all 7. Trouble concentrating on things, such as reading the newspaper or watching television: not at all 8. Moving or speaking so slowly that other people could have noticed. Or the opposite - being so fidgety or restless that you have been moving around a lot more than usual: not at all 9. Thoughts that you would be better off or of hurting yourself in some way: not at all Total score: 1 Source: Developed by Drs. True Patricia, Celina Gregorio, Josiha Pena and colleagues, with an educational anh from [employer]. Thrive Questionnaire Date Thrive assessed: 03/14/25 I am a: Patient Within the past 12 months, did the food you bought not last and you didn't have the money to get more?: Never true Within the past 12 months, did you worry whether your food would run out before you got money to buy more?: Never true Do you have trouble paying for medicines?: No Do you have trouble getting transportation to medical appointments?: No Do you have trouble paying your heating and electricity bill?: No Do you have trouble taking care of your child, family member or friend?: No Do you have trouble with day-to-day activities such as bathing, preparing meals, shopping, managing finances, etc.?: No Are you currently unemployed and looking for a job?: No Are you interested in more education?: No THRIVE Score: 0 AUDIT C Alcohol Use Questionnaire (AUDIT-C) 1. How often do you have a drink containing alcohol?: Never 3. How often do you have six or more drinks on one occasion?: Never Total Score: 0 GAURAV-7 AMB Questionnaire GAURAV-7 Date GAURAV - 7 assessed: 03/14/25 Feeling nervous, anxious, or on edge: 0 = Not at all Not being able to stop or control worryin = Not at all Worrying too much about different things: 0 = Not at all Trouble relaxin = Not at all Being so restless that it is hard to sit still: 0 = Not at all Becoming easily annoyed or irritable: 0 = Not at all Feeling afraid as if something awful might happen: 0 = Not at all Total GAURAV-7 score (0-4 normal; 5-9 mild; 10-14 moderate; 15-21 severe): 0 Source: Developed by Drs. True Patricia, Celina Gregorio, Josiah Pena and colleagues, with an educational anh from [employer]. Review of Systems Const Details: CONSTITUTIONAL Negative HEAD/NECK Right sided neck pain RESPIRATORY Negative CARDIOVASCULAR Negative ENDOCRINE Reports history of diabetes mellitus and hypothyroidism. MUSCULOSKELETAL Reports shoulder pain with radiation to elbow and neck, worsened by movement. NEUROLOGICAL Negative PSYCHIATRIC Negative . Physical exam (Primary Care) Vital Signs: Last Vital Signs Temp 98.1 F 03/14/25 17:04 Pulse 62 03/14/25 17:04 BP 128/76 03/14/25 17:04 Pulse Ox 99 03/14/25 17:04 Oxygen Delivery Method Room Air 03/14/25 17:04 BMI result Body Mass Index 24.7 GENERAL Well developed, Well nourished, in no apparent distress HEENT Head-Normocephalic Eyes- PERRLA, EOMI, Conjuctiva clear, lids WNL Ears- Canals clear, TMs WNL Mouth/Throat-No lesions, no erythema, no exudate Neck- Supple, No lymphadenopathy, thyroid WNL RESPIRATORY Normal I:E, Clear to auscultation CARDIOVASCULAR Regular, rate and rhthym, No murmurs or rubs GASTROINTESTINAL Soft, nontender, normal bowel sounds, no masses MUSCULOSKELETAL Right shoulder- mild decreased ROM, tender over GH joint, tender with motion, muscle strength 3/5, DTR 2+ NEUROLOGICAL Gait normal PSYCHIATRIC Oriented to person, place and time Mood and affect WNL Appearance WNL Speech WNL Thought processes WNL Tobacco/Smoking Status: Tobacco use Status Tobacco use date assessed 03/14/25 03/14/25 17:06 Patient Tobacco Use Status Never used Tobacco 03/14/25 17:06 e-Cigarette/Vaping Use Never Used 03/14/25 17:06 PHQ-9: PHQ-9 Score PHQ-9: Total score 1 03/14/25 18:16 Thrive Assessment: Date of Thrive Assessment Date Thrive assessed 03/14/25 03/14/25 17:06 Results Reviewed Results Reviewed: - Imaging: Previous shoulder x-ray showed arthritis changes. - Labs: Last A1c was 7.8 in August; TSH was 6.8. 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 use 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 complication status: without complication Hypothyroidism, unspecified type E03.9 Hypothyroidism type: unspecified Right shoulder pain, unspecified chronicity M25.511 Chronicity: unspecified Time Spent (min) 35 Comment Time spent on chart review, H&P, Patient education, placing orders, documentation Assessment & Plan Assessment & Plan (1) T2DM (type 2 diabetes mellitus): Code(s): E11.9 - Type 2 diabetes mellitus without complications Category: Medical Qualifiers: 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 The patient is advised to maintain dietary control and monitor blood glucose levels regularly. Labs ordered. Patient to follow up in 8 weeks or sooner if symptoms persist or worsen. (2) Hypothyroidism: Code(s): E03.9 - Hypothyroidism, unspecified Category: Medical Qualifiers: Hypothyroidism type: unspecified Qualified Code(s): E03.9 - Hypothyroidism, unspecified Plan: For hypothyroidism, the plan includes re-evaluating thyroid function tests to determine if an adjustment in the Levoxyl dosage is necessary. Patient to follow up in 8 weeks or sooner if symptoms persist or worsen. (3) Right shoulder pain: Code(s): M25.511 - Pain in right shoulder Category: Medical Qualifiers: Chronicity: unspecified Qualified Code(s): M25.511 - Pain in right shoulder Plan: The plan for shoulder pain includes obtaining an x-ray to assess for any structural abnormalities and prescribing an anti-inflammatory medication, meloxicam, to reduce inflammation and pain. Additionally, a muscle relaxer, tizanidine, will be prescribed to be taken at bedtime to help alleviate muscle tension and improve sleep quality. Patient to follow up as needed if symptoms persist or worsen. Plan I discussed with the patient the likely diagnosis of a strained muscle in the shoulder and the plan to obtain an x-ray to rule out any structural issues. We talked about the use of meloxicam for inflammation and tizanidine for muscle relaxation and sleep improvement. For diabetes management, we considered the potential addition of a GLP-1 receptor agonist if current medications are insufficient. We also discussed re-evaluating thyroid function to assess the need for adjusting the Levoxyl dosage. Orders: Orders Hemoglobin A1c 03/16/25 E11.9 - Type 2 diabetes mellitus without complications Comprehensive Met. Panel 03/16/25 E11.9 - Type 2 diabetes mellitus without complications, Z79.899 - Other nursing home (current) drug therapy TSH reflex Free T4 03/16/25 E03.9 - Hypothyroidism, unspecified Lipid Panel 03/16/25 E78.5 - Hyperlipidemia, unspecified XR shoulder RT min 2V 03/16/25 M25.511 - Pain in right shoulder Medications: New meloxicam 15 mg PO DAILY 30 tabs 0RF with food for arm pain tizanidine 4 mg PO BEDTIME PRN 14 tabs 0RF muscle spasticity Patient Instructions: - Take meloxicam as prescribed to reduce shoulder inflammation and pain. - Use tizanidine at bedtime to help relax muscles and improve sleep. - Continue taking Farxiga and metformin for diabetes management. - Maintain dietary control and monitor blood glucose levels regularly. - Schedule and complete lab work and x-ray before the next visit.
--- OUTSIDE RECORDS SUMMARY | 2025-03-14 18:49 | XMS_ITS | Patient Health Record ---
Author [facility] Address [address] [facility] [address] [facility] [place] [address] Care Team Providers Care Certified Pharmacy Tech Name Role Phone Brad Mcbride MD Primary Care Provider Unavailab Candace Ko Unavailable [phone] Rambo, Olinda Unavailable [phone] Anurag Jang Unavailable [phone] Allergies Allergen (clinical drug ingredient) Drug/Non Drug [...] 10 MG 1 tablet Orally Once a day; Duration: 30 day(s) Active Aspirin 81 MG 1 tablet Orally Once a day Active Levoxyl 88 MCG 1 tablet on an empty stomach in the morning Orally Once a day Active Simvastatin 20 MG 1 tablet in the even ing Orally Once a day Active Zocor 20 MG 1 tablet in the even ing Orally Once a day Not-Taking Multivitamins Orally Not- jamel Vitamin C Not-Taking Vitamin D 1000 UNIT 1 tablet Orally Once a day Not-Taking ZyrTEC Not-Taking metFORMIN HCl 1000 MG 1 tablet with a me al Orally Once a day; Duration: 30 day(s) Active Social History Tobacco Use: [...] Status Risk Notes Problem Acquired hallux valgus (27445352) Hallux valgus (acquired), left foot (M20.12) Active confirmed Problem Acquired hallux valgus (58522277) Hallux valgus (acquired), right foot (M20.11) Active confirmed Problem Polyneuropathy due to type 2 diabetes mellitus (423348870) Type 2 diabetes mellitus with diabetic polyneuropathy (E11.42) Active confirmed Vital Signs Height 5 ft 2 in in 05/17/2024 Weight 129 lbs 05/17/2024 BMI 23.59 kg/m2 05/17/2024 Procedures Procedure Date Ordered Date Performed Result Body Sit e 49891-XPYE SKIN LESIONS, OVER 4 05/17/2024 N/A Encounters Encounter Location Date Provider Diagnosis [facility] [address] [address] 05/17/2024 Olinda Black Type 2 diabetes mellitus [...] X ray : Foot, right 3V 05/15/2022 97346-Rijn Destruction, 1-14 02/10/2017 89768-Hkbd Destruction, 1-14 03/07/2017 09016-IWMU SKIN LESIONS, OVER 4 05/17/20 24 06399-CUYK SKIN LESIONS, 2 TO 4 05/15/20 22 53928-JQZM SKIN LESIONS, 2 TO 4 05/15/20 23 Next Appt Details Provider Name:Olinda Winters Rambo , 05/16/2025 10:00:00 AM, [address] [place], [address], Insurance Providers Payer Name Payer Address Payer Phone Subscriber Number Group Number Insured Name Patient Relationship to Insured Coverage Start Date Coverage End Date [employer] [place] [employer] [facility] [address] [place] [address] [id number] Alayna Bah Self - patient is the insured Medical (General) History Medical History History ICD Code Broken bones Diabetic Sciatica Thyroid disorder Measles Mumps Chicken pox Joint implants/screws Vertigo covid-19 Warts Surgical History Surgery Date(Month/Year) section 01/16/1979 section 01/29/1983 right femur 07/24/1996 tendonitis, left wrist 2012 tendonitis, right wrist 2019 Hospitalization History Reason Date(Month/Year) Cyst removal from scalp 03/05/17 Colonoscopy 02/28/17
--- OUTSIDE RECORDS SUMMARY | 2025-03-14 18:49 | XMS_ITS | Patient Health Record ---
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 Role Phone Reed (RETIRED) Brad ACKERMAN Primary Care Provider Unavailable True Lopez Unavailable [phone] Allergies Allergen (clinical drug ingredient) Drug/Non Drug Allergy documented on EMR Reaction Allergy Type Onset Date Status Codeine Phosphate Unknown Drug Allergy Active Reason For Referral No Information Medications Medication SIG (Take, Route, Fr equency, Duration) Notes Start Date End Date Status Restasis 0.05 % 1 null into affected eye Ophthalmic Twice a day Active Zocor 20 MG 1 tablet in the even ing Orally Once a day Active Levoxyl 88 MCG 1 tablet on an empty stomach in the morning Orally Once a day Ac tive Aspir-81 81 MG 1 tablet Orally Once a day Active Vitamin C 500 MG 1 tablet Orally Once a day Active Cetirizine HCl 10 MG 1 tablet Orally Once a day Active Social History Tobacco Use: Social History Observation Description Date Details (start date - stop date) Never Smoker NA - NA Tobacco Use/Smoking Question Answer Notes Patient is a nonsmoker Alcohol Screen Question Answer Notes Did you have a drink contain ing alcohol in the past year? Yes How often did you have a dri nk containing alcohol in the past year? Monthly or less (1 point) How many drinks did you have on a typical day when you were drinking in the past year? 1 or 2 drinks (0 point) How often did you have 6 or more drinks on one occasion in the past year? Never (0 point) Points 1 Interpretation Negative Section Notes: Nonsmoker; no sig alcohol Problems Problem Type SNOMED Code ICD Code Onset Dates Problem Status W/U Status Risk Notes Problem [id number] Encounter for screening for malignant neoplasm of colon (Z12.11) Active confirmed Problem 383901674 Preprocedural examination (Z01.818) Active confirmed Plan Of Treatment Future Test Test Name Order Date COLONOSCOPY 11/13/2016 Insurance Providers Payer Name Payer Address Payer Phone Subscriber Number Group Number Insured Name Patient Relationship to Insured Coverage Start Date Coverage End Date [facility] [address] [place] [address] [id number] VIKASH FLORES Self - patient is the insured Medical (General) History Medical History History ICD Code Screening colonoscopy 06-11-2004--diverti culosis, internal hemorrhoids Hypothyroidism Denies NM,CVA,Lung disease,renal disease Hyperlipidemia Diet-controlled DM Surgical History Surgery Date(Month/Year) C-sections x 2 Knee surgery Broken leg D&C Tendon repair on left wrist
== END 2025-03-14 17:51 | disposition home or self-care (01) ==
LOC: HO.HMCHD 16:47
PROVIDERS: PCP Family Medicine; Visit Provider Physician Assistant Medical
DX: E11.9 Type 2 diabetes mellitus without complications (principal); E03.9 Hypothyroidism, unspecified; M25.511 Pain in right shoulder

== ENCOUNTER → 2025-03-14 16:47 | Outpatient (BNVA) | payer MEDICARE, SELFPAY | PROVIDERS: PCP Family Medicine; Visit Provider Physician Assistant Medical | DX: E11.9 Type 2 diabetes mellitus without complications (principal); E03.9 Hypothyroidism, unspecified; E78.5 Hyperlipidemia, unspecified; M25.511 Pain in right shoulder | CPT/HCPCS: 96127; 99202 ==

== ENCOUNTER 2025-03-16 09:45 | Outpatient (REF) | payer MEDICARE, SELFPAY ==
--- OUTSIDE RECORDS SUMMARY | 2024-05-17 06:00 | XMS_ITS ---
Author Organization [facility] Address [address] [place] [address] Care Team Providers Care Switchboard Receptionist Name Role Phone Reed ACKERMAN, Brad Primary Care Provider Unavailab Candace Ko Unavailable [phone] Anurag Jang Unavailable [phone] REASON FOR VISIT /tamara Encounters Encounter Location Date Provider Diagnosis [address] [address] 05/17/2024 Anurag Jang Plan Of Treatment Next Appt Details Provider Name:Olinda Ricks , 05/16/2025 10:00:00 AM, [address] [place] [address], [address], Progress Notes * Alayna FLORES LDOB: 2 (74 yo F)Acc No.[id number]:05/17/2024 Progress Note Patient: Alayna ARELLANO Provider: Thierno Jang DPM :1950 A ge:73 Y S ex:Female Date:05/17/2024 Address:[address] [place] Pcp:Brad Mcbride MD Subjective: * Chief Complaints: [...] DPM Date: 1 07/17/2023 Generated for Ayan Hughes on: 0 03/16/2025 11:40 AM EDT
--- NOTE | ~2025-03-16 | XR_ITS ---
EXAMINATION: XR SHOULDER, RIGHT CLINICAL INFORMATION: M25.511 - Pain in right shoulder COMPARISON: None available. TECHNIQUE: AP external rotation, Grashey, scapular Y, and axillary views of the right shoulder. FINDINGS: AC joint is intact and not degenerated. Glenohumeral joint is not dislocated. No other abnormalities are evident. XR/XR shoulder RT min 2V IMPRESSION: Unremarkable right shoulder Electronically signed by: Miguel Gibbons MD 03/16/2025 10:36 AM EDT
--- OUTSIDE RECORDS SUMMARY | 2025-03-16 11:40 | XMS_ITS | Patient Health Record ---
Author [facility] Address [address] [place] [address] Care Team Providers Care Registry Rn Name Role Phone Brad Mcbride MD Primary Care Provider Unavailab Candace Ko Unavailable [phone] Rambo, Olinda Unavailable [phone] Anurag Jang Unavailable [phone] Allergies Allergen (clinical drug ingredient) Drug/Non Drug [...] Status Risk Notes Problem Acquired hallux valgus (26874454) Hallux valgus (acquired), left foot (M20.12) Active confirmed Problem Acquired hallux valgus (36282799) Hallux valgus (acquired), right foot (M20.11) Active confirmed Problem Polyneuropathy due to type 2 diabetes mellitus (711359212) Type 2 diabetes mellitus with diabetic polyneuropathy (E11.42) Active confirmed Vital Signs Height 5 ft 2 in in 05/17/2024 Weight 129 lbs 05/17/2024 BMI 23.59 kg/m2 05/17/2024 Procedures Procedure Date Ordered Date Performed Result Body Sit e 14823-NOCQ SKIN LESIONS, OVER 4 05/17/2024 N/A Encounters Encounter Location Date Provider Diagnosis [facility] [address] [address] 05/17/2024 Olinda Black Type 2 diabetes mellitus [...] X ray : Foot, right 3V 05/15/2022 61481-Rgzn Destruction, 1-14 02/10/2017 70873-Lhuj Destruction, 1-14 03/07/2017 99660-PRYJ SKIN LESIONS, OVER 4 05/17/20 24 42770-LAMG SKIN LESIONS, 2 TO 4 05/15/20 22 89758-GVLY SKIN LESIONS, 2 TO 4 05/15/20 23 Next Appt Details Provider Name:Olinda Winters Rambo , 05/16/2025 10:00:00 AM, [address] [place], [address], Insurance Providers Payer Name Payer Address Payer Phone Subscriber Number Group Number Insured Name Patient Relationship to Insured Coverage Start Date Coverage End Date [employer] [place] [employer] [facility] [address] [place] [address] [phone] [id number] Alayna Bah Self - patient is the [...]
--- OUTSIDE RECORDS SUMMARY | 2025-03-16 11:40 | XMS_ITS | Patient Health Record ---
Author Organization [facility] Address [address] [place] [address] Care Team Providers Care Epic [facility] Name Role Phone Reed (RETIRED) Brad ACKERMAN Primary Care Provider Unavailable True Lopez Unavailable [phone] Allergies Allergen (clinical drug ingredient) Drug/Non Drug [...] Problem Status W/U Status Risk Notes Problem 579876402 Encounter for screening for malignant neoplasm of colon (Z12.11) Active confirmed Problem 665641069 Preprocedural examination (Z01.818) Active confirmed Plan Of Treatment Future Test Test Name Order Date COLONOSCOPY 11/13/2016 Insurance Providers Payer Name Payer Address Payer Phone Subscriber Number Group Number Insured Name Patient Relationship to Insured Coverage Start Date Coverage End Date [facility] [address] [place] [address] [id number] VIKASH FLORES Self - patient is the insured Medical (General) History Medical History History ICD Code Screening colonoscopy 06-11-2004--diverti culosis, internal hemorrhoids Hypothyroidism Denies MS,CVA,Lung disease,renal disease Hyperlipidemia Diet-controlled DM Surgical History Surgery Date(Month/Year) C-sections x 2 Knee surgery Broken leg D&C Tendon repair on left wrist
[2025-03-16 14:08] LABS: Hemoglobin A1C 260.3068 umol/L; Total Hemoglobin (HGBA1C) 3942.1018 umol/L
[2025-03-16 14:20] LABS: Alanine Aminotransferase 13 U/L (0-31); Albumin Level 4.4 g/dL (3.5-5.0); Alkaline Phosphatase 64 U/L (39-117); Anion Gap 11 (12-20); Aspartate Amino Transferase 23 U/L (5-31); Blood Urea Nitrogen 23 mg/dL (9-16); Calcium 8.9 mg/dL (8.4-10.2); Carbon Dioxide 29 mmol/L (22-29); Chloride 107 mmol/L (96-108); Cholesterol 184 mg/dL (<200); Estimated Glomerular Filt Rate > 60; HDL Cholesterol 79 mg/dL (>40); Potassium 4.1 mmol/L (3.3-5.1); Sodium 143 mmol/L (135-145); Total Protein 6.9 g/dL (6.5-8.0); Triglycerides 83 mg/dL (<150)
[2025-03-16 14:56] LABS: Free T4 (Free Thyroxine) 1.03 ng/dL (0.71-1.85)
== END 2025-03-16 09:46 | disposition home or self-care (01) ==
LOC: HO.HMGCX 09:45
PROVIDERS: PCP Physician Assistant Medical; Visit Provider Physician Assistant Medical
DX: M25.511 Pain in right shoulder (principal); E78.5 Hyperlipidemia, unspecified; E03.9 Hypothyroidism, unspecified; E11.9 Type 2 diabetes mellitus without complications; Z79.899 Other long term (current) drug therapy
CPT/HCPCS: 36415; 73030; 80053; 80061; 83036; 84439; 84443

== ENCOUNTER → 2025-03-16 10:04 | Outpatient (BNV) | payer MEDICARE, SELFPAY | PROVIDERS: PCP Physician Assistant Medical; Visit Provider Radiology Diagnostic Radiology | DX: M25.511 Pain in right shoulder (principal) | CPT/HCPCS: 73030 ==

== ENCOUNTER 2025-03-17 10:13 | Outpatient (AMB) | payer MEDICARE, SELFPAY ==
--- OUTSIDE RECORDS SUMMARY | 2024-05-17 06:00 | XMS_ITS ---
Author Organization [facility] Address [address] [place] [address] Care Team Providers Care Carpet Jack Name Role Phone Reed ACKERMAN, Brad Primary Care Provider Unavailab Candace Ko Unavailable [phone] Anurag Jang Unavailable [phone] REASON FOR VISIT /tamara Encounters Encounter Location Date Provider Diagnosis [address] [address] 05/17/2024 Anurag Jang Plan Of Treatment Next Appt Details Provider Name:Olinda Ricks , 05/16/2025 10:00:00 AM, [address] [place] [address], [address], Progress Notes * Alayna FLORES LDOB: 2 (74 yo F)Acc No.[id number]:05/17/2024 Progress Note Patient: Alayna ARELLANO Provider: Thierno Jang DPM :1950 A ge:73 Y S ex:Female Date:05/17/2024 Address:[address] [place] Pcp:Brad Mcbride MD Subjective: * Chief Complaints: [...] 07/17/2023 Generated for Ayan Hughes on: 0 03/17/2025 12:29 PM EDT
--- NOTE | 2025-03-17 10:15 | A.OFFPC_ITS ---
Vital Signs 03/17/25 10:21 Height 5 ft 2 in Weight 135 lb BMI 24.7 BP 120/70 Blood Pressure Location Lt brachial Position Sitting Respiration 16 Pulse 66 Pulse Source Pulse Oximeter Temp 98.7 F Temp Source Temporal Artery Scan Pulse Oximetry (%) 96 Oxygen Delivery Method Room Air Intake Visit Reasons: 3 month follow up-keli pt Curriculum And Assessment Coordinator Required: No Accompanied by: Spouse Allergies codeine (CODEINE) Allergy (Mild, Verified 03/17/25 10:15) DOUBLE VISION Codeine Phosphate Allergy (Unknown, Uncoded 03/14/25 17:05) Unknown Tobacco use date assessed: 03/14/25 Dental Screening Dental Screen Date: 03/14/25 HPI HPI Comments History of Present Illness Details The patient is a 74-year-old female presenting with muscle pain in the right shoulder. The patient reported onset of shoulder pain after attempting to stand from a kneeling position while cleaning the tub, during which she felt an audible pop followed by severe pain. This incident occurred a few days before the visit. The pain radiates into the neck and varies in intensity throughout the day. It is exacerbated by certain movements, such as raising the arm above the head, and impairs activities like working. Although pain medications were available, the patient refrained from taking them for the purpose of evaluation. The patient describes the pain as unlike any experienced before, comparing its severity to having had cesareans. Additionally, there are concerns regarding her chronic health conditions. Her current medications for diabetes and hypothyroidism are not providing adequate control. Specifically, her hemoglobin A1c increased from 7.8 to 8.2, indicating worsening control of Type 2 Diabetes Mellitus. She is currently on levothyroxine 88 mcg, which appears insufficient given her hypothyroid symptoms of fatigue throughout the day. Adjustments in medication are warranted to improve both thyroid and glucose levels. Medical History: - Hypothyroidism - Type 2 Diabetes Mellitus - Chronic Shoulder Pain Surgical History: - Two sections Medications: - Levothyroxine 88 mcg for hypothyroidis m - Metformin for Type 2 Diabetes Mellitus - Farxiga for Type 2 Diabetes Mellitus Diagnostic Results: - Right shoulder X-ray: Unremarkable Social: - Engages in physical activities as much as possible - Works regularly, requiring breaks due to shoulder pain [facility], [facility] Medical History (Updated 03/17/25 @ 11:04 by Asif Farmer MD) Hypothyroidism Right shoulder pain Family History (Updated 03/14/25 @ 17:17 by Sharda Wilkes MA) Mother No problems noted. Father No problems noted. Social History Housing: House Patient Tobacco Use Status: Never used Tobacco e-Cigarette/Vaping Use: Never Used service: No Current occupational status: employed Cognitive needs: No Hearing needs: No Vision needs: Yes (reading glasses) Questionnaire Thrive Questionnaire Date Thrive assessed: 03/14/25 GAURAV-7 AMB Questionnaire GAURAV-7 Date GAURAV - 7 assessed: 03/14/25 Source: Developed by Drs. True Patricia, Celina Gregorio, Josiah Pena and colleagues, with an educational anh from [employer]. Review of Systems Const Details: - Musculoskeletal: Reports pain in the right shoulder and upper neck following recent exertion. - Endocrine: Reports daytime fatigue possibly related to under-treated hypothyroidism. - No additional systems discussed. All systems reviewed & are unremarkable except as reviewed in HPI and above Physical exam (Primary Care) Vital Signs: Last Vital Signs Temp 98.7 F 03/17/25 10:21 Pulse 66 03/17/25 10:21 Resp 16 03/17/25 10:21 BP 120/70 03/17/25 10:21 Pulse Ox 96 03/17/25 10:21 Oxygen Delivery Method Room Air 03/17/25 10:21 BMI result Body Mass Index 24.7 Tobacco/Smoking Status: Tobacco use Status Tobacco use date assessed 03/14/25 03/17/25 10:20 Patient Tobacco Use Status Never used Tobacco 03/17/25 10:20 e-Cigarette/Vaping Use Never Used 03/17/25 10:20 Thrive Assessment: Date of Thrive Assessment Date Thrive assessed 03/14/25 03/17/25 10:20 Const Other: General: +Alert and oriented, Well nourished, No acute distress. Eye: Pupils are equal, round and reactive to light, Intact accommodation, Extraocular movements are intact, Normal conjunctiva, Vision unchanged. HENT: Normocephalic, Atraumatic, Tympanic membranes are clear, Normal hearing, Oral mucosa is moist, No pharyngeal erythema, Ear canals patent. Respiratory: Lungs CTA bilaterally, No wheeze, Respirations are non-labored. Cardiovascular: Regular rate, Regular rhythm, S1 auscultated, S2 auscultated, No murmur, Good pulses equal in all extremities, Normal peripheral perfusion, No edema. Gastrointestinal: Soft, Non-tender, Non-distended, Normal bowel sounds, No organomegaly. Musculoskeletal: Limited range of motion in the right shoulder, Mild tenderness in the right shoulder, No swelling, No deformity, Normal gait. Integumentary: Warm, Dry, [place], Intact. Neurologic: Alert, Oriented, Normal sensory, Normal motor function, No focal defects, Cranial Nerves II-XII are grossly intact, Normal deep tendon reflexes. Psychiatric: Cooperative, Appropriate mood & affect, Normal judgment. Coding Level of Care Code Est Pt Level 4 (17591) Complex EM visit Add On G2211 Diagnoses Type 2 diabetes mellitus without complication, without long-term current use of insulin E11.9 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 complication status: without complication 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 intermediate card tender insulin use: without intermediate card tender use Hypothyroidism, unspecified type E03.9 Hypothyroidism type: unspecified Right shoulder pain, unspecified chronicity M25.511 Chronicity: unspecified Assessment & Plan Assessment & Plan (1) T2DM (type 2 diabetes mellitus): Comment: - Initiate glipizide 2.5 mg daily in addition to current regimen. (A1c elevated to 8.4) - Reinforce the significance of dietary compliance and regular glucose monitoring. - Plan for re-assessment of glycemic control prior to the next scheduled appointment. Code(s): E11.9 - Type 2 diabetes mellitus without complications Category: Medical Qualifiers: 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 complication status: without complication 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 mcfp insulin use: without intermediate card tender use Qualified Code(s): E11.9 - Type 2 diabetes mellitus without complications (2) Hypothyroidism: Comment: - Adjust levothyroxine dosage to improve thyroid function, targeting persistent symptoms. (Increased from 88 to 100 given TSH of 7) - Schedule follow-up thyroid panel pre-visit for comprehensive evaluation. Code(s): E03.9 - Hypothyroidism, unspecified Category: Medical Qualifiers: Hypothyroidism type: unspecified Qualified Code(s): E03.9 - Hypothyroidism, unspecified (3) Right shoulder pain: Comment: - Recommend use of pain relievers and muscle relaxants to alleviate discomfort and improve mobility. - Encourage maintaining activity within personal limits to support joint and muscle flexibility. - On exam dose has point tendress of right shoulder with limitied active movement over the head - Monitor progress, with consideration for referral to orthopedics if no improvement. Code(s): M25.511 - Pain in right shoulder Category: Medical Qualifiers: Chronicity: unspecified Qualified Code(s): M25.511 - Pain in right shoulder Plan I discussed the management of the patient's shoulder pain, recommending init ially conservative treatment with muscle relaxants and maintaining activity to optimize shoulder function. Given the inadequacy in her current hypothermism and diabetes management, adjustments to her levothyroxine and diabetes medications were discussed thoroughly, emphasizing the necessity of optimal blood sugar and thyroid hormone levels. We agreed upon rescheduling her follow-up visit in three months to assess the effectiveness of the treatment plan and make further decisions as needed. The patient expressed understanding and was agreeable to the proposed management plan. Orders: Orders TSH reflex Free T4 3 Months E03.9 - Hypothyroidism, unspecified, E11.9 - Type 2 diabetes mellitus without complications, M25.511 - Pain in right shoulder Hemoglobin A1c 3 Months E03.9 - Hypothyroidism, unspecified, E11.9 - Type 2 diabetes mellitus without complications, M25.511 - Pain in right shoulder Medications: New glipizide 2.5 mg PO DAILY 30 tabs 0RF levothyroxine (Synthroid) 100 mcg PO DAILY 90 tabs 0RF Patient Instructions: - Take prescribed pain medications and muscle relaxants as directed. - Maintain an active routine while avoiding movements that exacerbate shoulder pain. - Take glipizide 2.5 mg in the morning for diabetes management. - Notify if symptoms worsen or if new concerns arise. - Plan to have blood work done prior to the next appointment in three months.
[2025-03-17 10:21] VITALS: BP 120/70; PULSE 66; RESP 16; TEMP 37.1; O2SAT 96; BMI 24.7
--- OUTSIDE RECORDS SUMMARY | 2025-03-17 12:29 | XMS_ITS | Patient Health Record ---
Author Organization [facility] Address [address] [place] [address] Care Team Providers Care Pets Salesperson Name Role Phone Reed (RETIRED) Brad ACKERMAN Primary Care Provider Unavailable True Lopez Unavailable [phone] Allergies Allergen (clinical drug ingredient) Drug/Non Drug [...] Problem Status W/U Status Risk Notes Problem [id number] Encounter for screening for malignant neoplasm of colon (Z12.11) Active confirmed Problem [id number] Preprocedural examination (Z01.818) Active confirmed Plan Of Treatment Future Test Test Name Order Date COLONOSCOPY 11/13/2016 Insurance Providers Payer Name Payer Address Payer Phone Subscriber Number Group Number Insured Name Patient Relationship to Insured Coverage Start Date Coverage End Date [facility] [address] [place] [phone] [id number] VIKASH FLORES Self - patient is the insured Medical (General) History Medical History History ICD Code Screening colonoscopy 06-11-2004--diverti culosis, internal hemorrhoids Hypothyroidism Denies [place],CVA,Lung disease,renal disease Hyperlipidemia Diet-controlled DM Surgical History Surgery Date(Month/Year) C-sections x 2 Knee surgery Broken leg D&C Tendon repair on left wrist
--- OUTSIDE RECORDS SUMMARY | 2025-03-17 12:29 | XMS_ITS | Patient Health Record ---
Author Organization [facility] Address [address] [place] [address] Care Team Providers Care Firer Locomotive Name Role Phone Brad Mcbride MD Primary Care Provider Unavailab Candace Ko Unavailable [phone] Rambo, Olinda Unavailable [phone] Anurag Jang Unavailable [phone] Allergies Allergen (clinical drug ingredient) Drug/Non Drug [...] Status Risk Notes Problem Acquired hallux valgus (73019388) Hallux valgus (acquired), left foot (M20.12) Active confirmed Problem Acquired hallux valgus (56556484) Hallux valgus (acquired), right foot (M20.11) Active confirmed Problem Polyneuropathy due to type 2 diabetes mellitus (418000358) Type 2 diabetes mellitus with diabetic polyneuropathy (E11.42) Active confirmed Vital Signs Height 5 ft 2 in in 05/17/2024 Weight 129 lbs 05/17/2024 BMI 23.59 kg/m2 05/17/2024 Procedures Procedure Date Ordered Date Performed Result Body Sit e 74209-[id number] SKIN LESIONS, OVER 4 05/17/2024 N/A Encounters Encounter Location Date Provider Diagnosis [facility] [address] [address] 05/17/2024 Olinda Black Type 2 diabetes mellitus [...] X ray : Foot, right 3V 05/15/2022 [id number] Destruction, 1-14 02/10/2017 [id number] Destruction, 1-14 03/07/2017 [id number] SKIN LESIONS, OVER 4 05/17/20 24 [id number] SKIN LESIONS, 2 TO 4 05/15/20 22 [id number] SKIN LESIONS, 2 TO 4 05/15/20 23 Next Appt Details Provider Name:Olinda Winters Rambo , 05/16/2025 10:00:00 AM, [address] [place], [address], Insurance Providers Payer Name Payer Address Payer Phone Subscriber Number Group Number Insured Name Patient Relationship to Insured Coverage Start Date Coverage End Date [employer] [place] [employer] [facility] [address] [place] [address] [id number] Alayna Bah Self - patient is the [...]
== END 2025-03-17 11:02 | disposition home or self-care (01) ==
LOC: HO.HMCHD 10:13
PROVIDERS: PCP Student in an Organized Health Care Education/Training Program; Visit Provider Student in an Organized Health Care Education/Training Program
DX: E11.9 Type 2 diabetes mellitus without complications (principal); E03.9 Hypothyroidism, unspecified; M25.511 Pain in right shoulder

== ENCOUNTER → 2025-03-17 10:13 | Outpatient (BNVA) | payer MEDICARE, SELFPAY | PROVIDERS: PCP Family Medicine; Visit Provider Student in an Organized Health Care Education/Training Program | DX: E11.9 Type 2 diabetes mellitus without complications (principal); E03.9 Hypothyroidism, unspecified; M25.511 Pain in right shoulder | CPT/HCPCS: 99212 ==

== ENCOUNTER 2025-04-14 10:21 | Outpatient (AMB) | payer MEDICARE, SELFPAY ==
--- NOTE | 2025-04-14 09:12 | MHC.PC.OV ---
Vital Signs 04/14/25 09:13 Height 5 ft 2 in Weight 133 lb BMI 24.3 BP 124/76 Blood Pressure Location Lt brachial Position Sitting Pulse 62 Pulse Source Pulse Oximeter Temp 97.9 F Temp Source Temporal Artery Scan Pulse Oximetry (%) 98 Oxygen Delivery Method Room Air Intake Visit Reasons: arm/shoulder/neck pain - no improvement Patient Services Technician Required: No Accompanied by: Self / Same As Patient Allergies codeine (CODEINE) Allergy (Mild, Verified 04/14/25 09:13) DOUBLE VISION Codeine Phosphate Allergy (Unknown, Uncoded 03/14/25 17:05) Unknown Medication List - Last Reconciled 04/18/25 by LISA Anglin ascorbic acid (vitamin C) mg PO aspirin 81 mg PO DAILY cetirizine (Allergy Relief (cetirizine)) 10 mg PO DAILY PRN cholecalciferol (vitamin D3) 25 mcg PO DAILY coQ10 (ubiquinol) (Qunol Jem CoQ10) 100 mg PO DAILY dapagliflozin propanediol (Farxiga) 10 mg PO DAILY gabapentin take one or two at bedtime for nerve pain orally bedtime; glipizide ER 2.5 mg PO DAILY 90 days levothyroxine (Synthroid) 100 mcg PO DAILY magnesium 250 mg PO DAILY metformin 1,000 mg PO DAILY methylprednisolone (Medrol (Lisandro)) PO PER PKG DIR for 6 days simvastatin 20 mg PO BEDTIME Tobacco use date assessed: 04/14/25 Fall risk assessment: No Falls in past year Last assessed Fall Risk: 04/14/25 Dental Screening Dental Screen Date: 04/14/25 Did you have a dental visit in the last 12 months?: Yes Did you have a dental problem in the last 6 months where you did not have access to dental care?: No HPI HPI Comments History of Present Illness Details The patient is a 74-year-old female with T2DM, hypothyroidism, AR and Hyperlipidemia here presenting with shoulder pain and sciatica. The shoulder pain has been severe, characterized by burning sensations that extend to the neck, causing significant discomfort during activities such as putting on a bra. The pain is somewhat alleviated by ibuprofen, but persists with movement, indicating a chronic nature. The patient has attempted to seek orthopedic consultation but faced scheduling difficulties, with appointments unavailable until June. She reports that ibuprofen provides more relief than prescribed pain medication, and muscle relaxants have been ineffective. The sciatica is described as starting in the left buttock and shooting down the leg, causing significant pain and affecting mobility. The patient has experienced episodes where the leg collapses, and she has been using hot compresses and ibuprofen for relief. The patient has a history of frozen shoulder, previously treated with cortisone injections, which provided relief. She remains active, engaging in activities such as dancing and lifting, but current symptoms have limited her ability to perform routine tasks. Patient was informed and verbally consented to the use of an ambient scribe for clinic note documentation during this visit. [facility] Medical History Hypothyroidism Right shoulder pain Family History Mother No problems noted. Father No problems noted. Social History Housing: House Patient Tobacco Use Status: Never used Tobacco e-Cigarette/Vaping Use: Never Used service: No Current occupational status: employed Cognitive needs: No Hearing needs: No Vision needs: Yes (reading glasses) Questionnaire PHQ-9 Over the last 2 weeks, how often have you been bothered by any of the following problems? 1. Little interest or pleasure in doing things: not at all 2. Feeling down, depressed, or hopeless: not at all 3. Trouble falling or staying asleep, or sleeping too much: not at all 4. Feeling tired or having little energy: not at all 5. Poor appetite or overeating: not at all 6. Feeling bad about yourself - or that you are a failure or have let yourself or your family down: not at all 7. Trouble concentrating on things, such as reading the newspaper or watching television: not at all 8. Moving or speaking so slowly that other people could have noticed. Or the opposite - being so fidgety or restless that you have been moving around a lot more than usual: not at all 9. Thoughts that you would be better off or of hurting yourself in some way: not at all Total score: 0 Depression Screening Interpretation: Negative Depression Screening Done: Yes Source: Developed by Drs. True Patricia, Celina Gregorio, Josiah Pena and colleagues, with an educational anh from [employer]. Thrive Questionnaire Date Thrive assessed: 04/14/25 I am a: Patient Within the past 12 months, did the food you bought not last and you didn't have the money to get more?: Never true Within the past 12 months, did you worry whether your food would run out before you got money to buy more?: Never true Do you have trouble paying for medicines?: No Do you have trouble getting transportation to medical appointments?: No Do you have trouble paying your heating and electricity bill?: No Do you have trouble taking care of your child, family member or friend?: No Do you have trouble with day-to-day activities such as bathing, preparing meals, shopping, managing finances, etc.?: No Are you currently unemployed and looking for a job?: No Are you interested in more education?: No THRIVE Score: 0 AUDIT C Alcohol Use Questionnaire (AUDIT-C) 1. How often do you have a drink containing alcohol?: Never 3. How often do you have six or more drinks on one occasion?: Never Total Score: 0 GAURAV-7 AMB Questionnaire GAURAV-7 Date GAURAV - 7 assessed: 04/14/25 Feeling nervous, anxious, or on edge: 0 = Not at all Not being able to stop or control worryin = Not at all Worrying too much about different things: 0 = Not at all Trouble relaxin = Not at all Being so restless that it is hard to sit still: 0 = Not at all Becoming easily annoyed or irritable: 0 = Not at all Feeling afraid as if something awful might happen: 0 = Not at all Total GAURAV-7 score (0-4 normal; 5-9 mild; 10-14 moderate; 15-21 severe): 0 Source: Developed by Drs. True Patricia, Josiah Sabillon and colleagues, with an educational anh from [employer]. Review of Systems Const Details: CONSTITUTIONAL Negative HEAD/NECK Negative RESPIRATORY Negative CARDIOVASCULAR Negative MUSCULOSKELETAL Reports severe right shoulder pain with burning sensation sciatica starting in the left buttock and shooting down the leg. NEUROLOGICAL Reports nerve pain associated with burning sensation. PSYCHIATRIC Negative Physical exam (Primary Care) Vital Signs: Last Vital Signs Temp 97.9 F 04/14/25 09:13 Pulse 62 04/14/25 09:13 BP 124/76 04/14/25 09:13 Pulse Ox 98 04/14/25 09:13 Oxygen Delivery Method Room Air 04/14/25 09:13 BMI result Body Mass Index 24.3 GENERAL Well developed, Well nourished, in no apparent distress HEENT Head-Normocephalic Neck- Supple, No lymphadenopathy, thyroid WNL RESPIRATORY Normal I:E, Clear to auscultation CARDIOVASCULAR Regular, rate and rhythm, No murmurs or rubs MUSCULOSKELETAL Right shoulder- decreased ROM, Tender over GH joint, crepitus noted Back-Normal ROM, nontender to palpation , Tender with motion, Straight leg raise negative, DTR 2+ symmetrical, Gait normal NEUROLOGICAL Gait normal PSYCHIATRIC Oriented to person, place and time Mood and affect WNL Appearance WNL Speech WNL Thought processes WNL Tobacco/Smoking Status: Tobacco use Status Tobacco use date assessed 04/14/25 04/14/25 09:15 Patient Tobacco Use Status Never used Tobacco 04/14/25 09:15 e-Cigarette/Vaping Use Never Used 04/14/25 09:15 PHQ-9: PHQ-9 Score PHQ-9: Total score 0 04/14/25 10:56 Depression Screening Interpretation: Negative Thrive Assessment: Date of Thrive Assessment Date Thrive assessed 04/14/25 04/14/25 09:15 Results Reviewed Results Reviewed: EXAMINATION: XR SHOULDER, RIGHT CLINICAL INFORMATION: M25.511 - Pain in right shoulder COMPARISON: None available. TECHNIQUE: AP external rotation, Grashey, scapular Y, and axillary views of the right shoulder. FINDINGS: AC joint is intact and not degenerated. Glenohumeral joint is not dislocated. No other abnormalities are evident. XR/XR shoulder RT min 2V IMPRESSION: Unremarkable right shoulder Coding Level of Care Code Established Pt Est Pt Level 4 (61935) Patient Type Established Diagnoses Right shoulder pain, unspecified chronicity M25.511 Chronicity: unspecified Left sided sciatica M54.32 Time Spent (min) 30 Comment Time spent on chart review, H&P, Patient education and orders Assessment & Plan Assessment & Plan (1) Right shoulder pain: Code(s): M25.511 - Pain in right shoulder Category: Medical Qualifiers: Chronicity: unspecified Qualified Code(s): M25.511 - Pain in right shoulder Plan: The plan for managing shoulder pain includes a referral for physical therapy to focus on the shoulder, as well as a prescription for a Medrol Dosepak (methylprednisolone) to address inflammation. The patient is advised to continue using ibuprofen for pain relief and to make an appointment with orthopedics for further evaluation. Patient to follow up in 2 months or sooner if symptoms persist or worsen. (2) Left sided sciatica: Code(s): M54.32 - Sciatica, left side Plan: For sciatica, the patient is advised to use hot compresses and ibuprofen for symptom relief. Gabapentin is recommended to help manage nerve pain and improve sleep quality. Patient to follow up in 2 months or sooner if symptoms persist or worsen. Plan During the visit, I discussed with the patient the management of her shoulder pain and sciatica, emphasizing the importance of addressing inflammation through a Medrol Dosepak and considering physical therapy for the shoulder. We also talked about the use of gabapentin to manage nerve pain and improve sleep quality, and the potential need for orthopedic consultation if symptoms persist. Orders: Orders PT Evaluation and Treatment Today M25.511 - Pain in right shoulder Medications: New gabapentin take one or two at bedtime for nerve pain orally bedtime; 60 caps 1RF methylprednisolone (Medrol (Lisandro)) PO PER PKG DIR for 6 days 21 ea 0RF Discontinued meloxicam Discontinued Reason: Doctor's Order 15 mg PO DAILY 30 tabs 0RF for pain tizanidine Discontinued Reason: Doctor's Order 4 mg PO BEDTIME PRN 14 tabs 0RF muscle spasticity Patient Instructions: - Take ibuprofen as needed for pain relief. - Use hot compresses for sciatica relief. - Take gabapentin at bedtime to help with nerve pain and sleep. - Schedule an appointment with orthopedics for further evaluation. - Follow up with physical therapy as referred.
[2025-04-14 09:13] VITALS: BP 124/76; PULSE 62; TEMP 36.6; O2SAT 98; BMI 24.3
== END 2025-04-14 11:45 | disposition home or self-care (01) ==
LOC: HO.HMCHD 10:22
PROVIDERS: PCP Student in an Organized Health Care Education/Training Program; Visit Provider Physician Assistant Medical
DX: M25.511 Pain in right shoulder (principal); M54.32 Sciatica, left side

== ENCOUNTER → 2025-04-14 10:21 | Outpatient (BNVA) | payer MEDICARE, SELFPAY | PROVIDERS: PCP Student in an Organized Health Care Education/Training Program; Visit Provider Physician Assistant Medical | DX: M25.511 Pain in right shoulder (principal); M54.32 Sciatica, left side; Z13.31 Encounter for screening for depression; Z13.39 Encounter for screening examination for other mental health and behavioral disorders | CPT/HCPCS: 96127; 99212 ==

== ENCOUNTER 2025-04-27 14:55 | Outpatient (AMB) | payer MEDICARE, SELFPAY ==
--- OUTSIDE RECORDS SUMMARY | 2024-05-17 06:00 | XMS_ITS ---
Author Organization [facility] Address [address] [place] [address] Care Team Providers Care Laboratory Equipment Cleaner Name Role Phone Brad Mcbride MD Primary Care Provider Unavailab Candace Ko Unavailable [phone] Anurag Johnson Unavailable [phone] REASON FOR VISIT /tamara Encounters Encounter Location Date Provider Diagnosis [address] [address] 05/17/2024 Anurag Johnson Plan Of Treatment Next Appt Details Provider Name:Olinda Ricks , 05/16/2025 10:00:00 AM, [address] [place], [address], Progress Notes * Alayna FLORES LDOB: 2 (74 yo F)Acc No.[id number]:05/17/2024 Progress Note Patient: Alayna ARELLANO Provider: Thierno Jang DPM :1950 A ge:73 Y S ex:Female Date:05/17/2024 Address:[address] [place] Pcp:Brad Mcbride MD Subjective: * Chief Complaints: * 1 . . * Medical History: Objective: * Vitals: Assessment: Plan: * Treatment: * Images: * The named appointment provid er may or may not be the originator of this progress note, and it is not deemed complete until electronically signed by the appointment provider. Sign off status: Pending * Provider: Thierno Jang DPM Date: 07/17/2023 Generated for Ayan fleming/Mehdi/Roz on: 09:10 PM EDT
--- NOTE | 2025-04-27 14:58 | MHC.OFFVIS ---
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 The patient states that she injured her right shoulder several months ago while getting out of her bathtub. She pushed onto her right arm and felt a ?pop? in her right shoulder. Since that time she has had weakness when lifting her right hand above shoulder height. She has been going to formal physical therapy which gives her minimal relief. She has failed the last 6 weeks of conservative treatment which has included Tylenol, anti-inflammatory medicines, a home exercise program, physical therapy exercises and muscle relaxants. Allergies codeine (CODEINE) Allergy (Mild, Verified 04/27/25 15:15) DOUBLE VISION Codeine Phosphate Allergy (Unknown, Uncoded 04/27/25 15:15) Unknown Medication List - Last Reconciled 04/27/25 by Jair Molina MD ascorbic acid (vitamin C) mg PO aspirin 81 mg PO DAILY cetirizine (Allergy Relief (cetirizine)) 10 mg PO DAILY PRN cholecalciferol (vitamin D3) 25 mcg PO DAILY coQ10 (ubiquinol) (Qunol Jem CoQ10) 100 mg PO DAILY dapagliflozin propanediol (Farxiga) 10 mg PO DAILY glipizide ER 2.5 mg PO DAILY 90 days ibuprofen 400 mg PO Q8H PRN levothyroxine (Synthroid) 100 mcg PO DAILY magnesium 250 mg PO DAILY metformin 1,000 mg PO DAILY simvastatin 20 mg PO BEDTIME PFSH Medical History Hypothyroidism Right shoulder pain Family History Mother No problems noted. Father No problems noted. Social History Housing: House Patient Tobacco Use Status: Never used Tobacco e-Cigarette/Vaping Use: Never Used service: No Current occupational status: employed Cognitive needs: No Hearing needs: No Vision needs: Yes (reading glasses) Physical Exam Vital Signs: BMI result Body Mass Index 24.3 Const Other: Well-nourished well-developed very friendly female awake alert and oriented x3 in no acute distress Extrem Other: Right shoulder examination shows decreased range of motion when compared to her left shoulder, 4/5 strength with supraspinatus testing, positive impingement signs, tenderness over her acromioclavicular joint, no instability Results Reviewed Results Reviewed: X-rays of the patient's right shoulder show severe acromioclavicular joint narrowing, a type 2 acromion, no acute bony abnormalities Assessment & Plan Assessment & Plan (1) Rotator cuff insufficiency of right shoulder: Code(s): M25.311 - Other instability, right shoulder Category: Medical Plan Ms. Bah presents with progressively worsening right shoulder pain and weakness due to impingement syndrome and most likely a full-thickness rotator cuff tear. Thus, I will send the patient for an MRI of her right shoulder for further evaluation. I will see her back once the MRI is completed to discuss the findings and treatment options. Feel free to call me at any time should questions regarding her orthopedic management arise. Thank you very much for asking me to see this very friendly patient. I spent 21 minutes in reviewing the patient's records and imaging studies, seeing the patient and documenting in the medical record. Orders: Orders MR shoulder RT wo con Today M25.311 - Other instability, right shoulder Coding Level of Care Code New Pt Level 3 (20046) Complex EM visit Add On G2211 Diagnoses Rotator cuff insufficiency of right shoulder M25.311
[2025-04-27 15:21] VITALS: BMI 24.3
--- OUTSIDE RECORDS SUMMARY | 2025-04-27 21:10 | XMS_ITS | Patient Health Record ---
Author Organization [facility] Address [address] [place] [address] Care Team Providers Care Senior Animal Trainer Name Role Phone Reed (RETIRED) Brad ACKERMAN Primary Care Provider Unavailable True Lopez Unavailable [phone] Allergies Allergen (clinical drug ingredient) Drug/Non Drug [...] Problem Status W/U Status Risk Notes Problem Screening for malignant neoplasm of colon (095017529) Encounter for screening for malignant neoplasm of colon (Z12.11) Active confirmed Problem Preprocedural examination (266457347103339) Preprocedural examination (Z01.818) Active confirmed Plan Of Treatment Future Test Test Name Order Date COLONOSCOPY 11/13/2016 Insurance Providers Payer Name Payer Address Payer Phone Subscriber Number Group Number Insured Name Patient Relationship to Insured Coverage Start Date Coverage End Date [facility] [address] [facility] [place] [phone] [id number] VIKASH FLORES Self - patient is the insured Medical (General) History Medical History History ICD Code Screening colonoscopy 06-11-2004--diverti culosis, internal hemorrhoids Hypothyroidism Denies [place],CVA,Lung disease,renal disease Hyperlipidemia Diet-controlled DM Surgical History Surgery Date(Month/Year) C-sections x 2 Knee surgery Broken leg D&C Tendon repair on left wrist
--- OUTSIDE RECORDS SUMMARY | 2025-04-27 21:10 | XMS_ITS | Patient Health Record ---
[facility] Address [address] [facility] [place] [address] Care Team Providers Care Payroll Supervisor Name Role Phone Brad Mcbride MD Primary Care Provider Unavailab Candace Ko Unavailable [phone] Rambo Olinda Unavailable [phone] Anurag Johnson Unavailable [phone] Allergies Allergen (clinical drug ingredient) Drug/Non Drug [...] Orally Once a day Not-Taking Multivitamins Orally Not-[facility] Vitamin C Not-Taking Vitamin D 1000 UNIT [...] Status Risk Notes Problem Acquired hallux valgus (49092892) Hallux valgus (acquired), left foot (M20.12) Active confirmed Problem Acquired hallux valgus (48985611) Hallux valgus (acquired), right foot (M20.11) Active confirmed Problem Polyneuropathy due to type 2 diabetes mellitus (979201978) Type 2 diabetes mellitus with diabetic polyneuropathy (E11.42) Active confirmed Vital Signs Height 5 ft 2 in in 05/17/2024 Weight 129 lbs 05/17/2024 BMI 23.59 kg/m2 05/17/2024 Procedures Procedure Date Ordered Date Performed Result Body Sit e 23475-BHXJ SKIN LESIONS, OVER 4 05/17/2024 N/A Encounters Encounter Location Date Provider Diagnosis [facility] [address] [address] 05/17/2024 Olinda Black Type 2 diabetes mellitus [...] X ray : Foot, right 3V 05/15/2022 94160-Unop Destruction, 1-14 02/10/2017 59692-Pyyc Destruction, 1-14 03/07/2017 93716-TORK SKIN LESIONS, OVER 4 05/17/20 24 75975-RXUZ SKIN LESIONS, 2 TO 4 05/15/20 22 53761-OSLB SKIN LESIONS, 2 TO 4 05/15/20 23 Next Appt Details Provider Name:Olinda Winters Rambo , 05/16/2025 10:00:00 AM, [address] [place], [address], Insurance Providers Payer Name Payer Address Payer Phone Subscriber Number Group Number Insured Name Patient Relationship to Insured Coverage Start Date Coverage End Date [employer] [address] [place] [address] [phone] [id number] Alayna Bah Self - patient is the [...]
== END 2025-04-27 15:35 | disposition home or self-care (01) ==
LOC: HO.HOS 14:56
PROVIDERS: PCP Student in an Organized Health Care Education/Training Program; Visit Provider Orthopaedic Surgery
DX: M25.311 Other instability, right shoulder (principal)
CPT/HCPCS: 99203; G2211

== ENCOUNTER → 2025-04-27 14:55 | Outpatient (BNVA) | payer MEDICARE, SELFPAY | PROVIDERS: PCP Student in an Organized Health Care Education/Training Program; Visit Provider Orthopaedic Surgery | DX: M25.511 Pain in right shoulder (principal); M25.311 Other instability, right shoulder | CPT/HCPCS: 99202 ==

== ENCOUNTER → 2025-05-20 07:49 | Outpatient (BNV) | payer MEDICARE, SELFPAY | PROVIDERS: PCP Student in an Organized Health Care Education/Training Program; Visit Provider Radiology Diagnostic Ultrasound | DX: M75.121 Complete rotator cuff tear or rupture of right shoulder, not specified as traumatic (principal); M25.461 Effusion, right knee; M19.011 Primary osteoarthritis, right shoulder; M67.813 Other specified disorders of tendon, right shoulder | CPT/HCPCS: 73221 ==

== ENCOUNTER 2025-05-20 07:56 | Outpatient (REF) | payer MEDICARE, SELFPAY ==
--- OUTSIDE RECORDS SUMMARY | 2024-05-17 05:00 | XMS_ITS ---
Author Organization [facility] Address [address] [place] [address] Care Team Providers Care Range Management Specialist Name Role Phone Brad Mcbride MD Primary Care Provider Unavailab marcos Ricks Olinda Unavailable [phone] Anurag Johnson Unavailable [phone] REASON FOR VISIT /tamara Encounters Encounter Location Date Provider Diagnosis [facility] [address] [place] [address] 05/17/2024 Anurag Johnson Plan Of Treatment No Information Progress Notes * Alayna FLORES LDOB: 2 (74 yo F)Acc No.[id number]:05/17/2024 Progress Note Patient: Alayna ARELLANO Provider: Thierno Jang DPM :1950 A ge:73 Y S ex:Female Date:05/17/2024 [address] Pcp:Brad Mcbride MD Subjective: * Chief Complaints: [...] 07/17/2023 Generated for Ayan fleming/Mehdi/Roz on: 1 07/20/2024 07:58 AM EST
--- OUTSIDE RECORDS SUMMARY | 2025-05-16 05:00 | XMS_ITS ---
Author Organization [facility] Address [address] [place] [address] Care Team Providers Care Shipping Inspector Name Role Phone Reed ACKERMAN, Brad Primary Care Provider Unavailab Olinda Oneill Unavailable [phone] Encounters Encounter Location Date Provider Diagnosis [facility] [address] [place] [address] 05/16/2025 Olinda Ricks Plan Of Treatment No Information Progress Notes * Alayna FLORES LDOB: 2 (74 yo F)Acc No.[id number]:05/16/2025 Progress Note Patient: Alayna ARELLANO Provider: aMgalys Ricks DPM :1950 A ge:74 Y S ex:Female Date:05/16/2025 [facility] Pcp:Brad Mcbride MD Subjective: * Chief Complaints: [...] Date: 07/16/2024 Generated for Printi ng/Faxing/eTransmitting on: 07/20/2024 07:58 AM EST
--- NOTE | ~2025-05-20 | MR_ITS ---
EXAMINATION: MR SHOULDER WITHOUT CONTRAST, RIGHT CLINICAL INFORMATION: Instability COMPARISON: X-ray 8 03/16/2025 TECHNIQUE: MRI of the shoulder without contrast was performed on a high-field scanner. FINDINGS: ROTATOR CUFF: Supraspinatus and infraspinatus: Full-thickness tear of the supraspinatus and anterior fibers infraspinatus. Measures 2.6 cm AP, 2.9 cm medial-lateral. Mild tendinosis in the intact fibers.. Teres minor: Intact Subscapularis: Mild tendinosis No muscle atrophy or fatty infiltration. Mild supraspinatus muscle edema, probable strain BICEPS: Intact CORACOACROMIAL ARCH: The undersurface of the acromion is curved with no subacromial spur. Mild acromioclavicular arthritis LABRUM/CAPSULE: No labral tear is seen. Intact inferior capsule. GLENOHUMERAL JOINT/MARROW: Subcortical degenerative-appearing cysts/edema in the posterior lateral humeral head. No acute fracture. No high-grade chondral loss. Moderate effusion, communicating with the subacromial subdeltoid space. MR/MR shoulder RT wo con IMPRESSION: * Full-thickness tear of the supraspinatus and anterior fibers infraspinatus measuring 2.6 x 2.9 cm. Mild tendinosis of the intact fibers. * Mild subscapularis tendinosis * Mild acromioclavicular arthritis. * Moderate glenohumeral joint effusion. *Additional findings as above Electronically signed by: Eric Vargas MD 05/20/2025 03:29 PM CRISTAL
--- OUTSIDE RECORDS SUMMARY | 2025-05-20 07:58 | XMS_ITS | Patient Health Record ---
Author Organization [facility] Address [address] [place] [address] Care Team Providers Care Excellence Consultant Name Role Phone Reed (RETIRED) Brad ACKERMAN Primary Care Provider Unavailable True Lopez Unavailable [phone] Allergies Allergen (clinical drug ingredient) Drug/Non Drug [...] Problem Screening for malignant neoplasm of colon (430590503) Encounter for screening for malignant neoplasm of colon (Z12.11) Active confirmed Problem Preprocedural examination (731049308746637) Preprocedural examination (Z01.818) Active confirmed Plan Of Treatment Future Test Test Name Order Date COLONOSCOPY 11/13/2016 Insurance Providers Payer Name Payer Address Payer Phone Subscriber Number Group Number Insured Name Patient Relationship to Insured Coverage Start Date Coverage End Date [facility] [address] [place] [phone] [id number] VIKASH FLORES Self - patient is the insured Medical (General) History Medical History History ICD Code Screening colonoscopy 06-11-2004--diverti culosis, internal hemorrhoids Hypothyroidism Denies [place],CVA,Lung disease,renal disease Hyperlipidemia Diet-controlled DM Surgical History Surgery Date(Month/Year) C-sections x 2 Knee surgery Broken leg D&C Tendon repair on left wrist
--- OUTSIDE RECORDS SUMMARY | 2025-05-20 07:58 | XMS_ITS | Patient Health Record ---
Author [facility] Address [address] [facility] [place] [address] Care Team Providers Care Assembler Adjuster Name Role Phone Brad Mcbride MD Primary Care Provider Unavailab marcos Olinda Ricks Unavailable [phone] Allergies Allergen (clinical drug ingredient) Drug/Non Drug Allergy documented on EMR Reaction Allergy Type Onset Date Status trazodone traZODone HCl Unknown Drug Allergy Act roberta codeine Codeine double vision Drug Allergy Act roberta Reason For Referral No Information Medications Medication [...] Status Risk Notes Problem Acquired hallux valgus (76862256) Hallux valgus (acquired), left foot (M20.12) Active confirmed Problem Acquired hallux valgus (79879880) Hallux valgus (acquired), right foot (M20.11) Active confirmed Problem Polyneuropathy due to type 2 diabetes mellitus (100138759) Type 2 diabetes mellitus with diabetic polyneuropathy (E11.42) Active confirmed Encounters Encounter Location Date Provider Diagnosis [facility] [place] [address] [place] [address] 05/12/2025 Olinda Ricks Plan Of Treatment Pending Test Test Name Order Date X ray : Foot, left 2V 09/20/2013 X ray : Foot, left 3V 05/15/2022 X ray : Foot, right 3V 05/15/2022 06917-Bfwy Destruction, 1-14 02/10/2017 09896-Snjm Destruction, 1-14 03/07/2017 85559-BUJI SKIN LESIONS, OVER 4 05/17/20 24 46315-ZWLL SKIN LESIONS, 2 TO 4 05/15/20 22 36050-LKTA SKIN LESIONS, 2 TO 4 05/15/20 23 Insurance Providers Payer Name Payer Address Payer Phone Subscriber Number Group Number Insured Name Patient Relationship to Insured Coverage Start Date Coverage End Date [employer] [address] [place] [address] [id number] Alayna Bah Self - patient is the insured Medical (General) History Medical History History ICD Code Broken bones Diabetic Sciatica Thyroid disorder Measles Mumps Chicken pox Joint implants/screws Vertigo covid-19 Warts Surgical History Surgery Date(Month/Year) section 01/16/1979 section 01/29/1983 right femur 07/24/1996 tendonitis, left wrist 2011 tendonitis, right wrist 2018 Hospitalization History Reason Date(Month/Year) Cyst removal from scalp 03/05/17 Colonoscopy 02/28/17
== END 2025-05-20 07:57 | disposition home or self-care (01) ==
LOC: HO.MRI 07:56
PROVIDERS: PCP Student in an Organized Health Care Education/Training Program; Visit Provider Orthopaedic Surgery
DX: M25.311 Other instability, right shoulder (principal)
CPT/HCPCS: 73221

== ENCOUNTER 2025-06-09 10:23 | Outpatient (AMB) | payer MEDICARE, SELFPAY ==
--- OUTSIDE RECORDS SUMMARY | 2024-05-17 05:00 | XMS_ITS ---
Author Organization [facility] Address [address] [place] [address] Care Team Providers Care Ski Lift Attendant Name Role Phone Brad Mcbride MD Primary Care Provider Unavailab marcos Ricks Olinda Unavailable [phone] Anurag Johnson Unavailable [phone] REASON FOR VISIT /tamara Encounters Encounter Location Date Provider Diagnosis [facility] [address] [place] [address] 05/17/2024 Anurag Johnson Plan Of Treatment No Information Progress Notes * Alayna FLORES LDOB: 2 (75 yo F)Acc No.[id number]:05/17/2024 Progress Note Patient: Alayna ARELLANO Provider: Thierno Jang DPM :1950 A ge:73 Y S ex:Female Date:05/17/2024 [address] Pcp:Brad Mcbride MD Subjective: * Chief Complaints: * 1 . . * Medical History: Objective: * Vitals: Assessment: Plan: * Treatment: * Images: * The named appointment provid er may or may not be the originator of this progress note, and it is not deemed complete until electronically signed by the appointment provider. Sign off status: Pending * Provider: Thierno Jang DPM Date: 1 07/17/2023 Generated for Ayan fleming/Mehdi/Roz on: 1 08/10/2024 12:40 PM EST
--- OUTSIDE RECORDS SUMMARY | 2025-05-16 05:00 | XMS_ITS ---
Author Organization [facility] Address [address] [place] [address] Care Team Providers Care Newborn Photographer Name Role Phone Reed ACKERMNA, Brad Primary Care Provider Unavailab Olinda Oneill Unavailable [phone] Encounters Encounter Location Date Provider Diagnosis [facility] [address] [place] [address] 05/16/2025 Olinda Ricks Plan Of Treatment No Information Progress Notes * Alayna FLORES LDOB: 2 (75 yo F)Acc No.[id number]:05/16/2025 Progress Note Patient: Alayna ARELLANO Provider: Magalys Ricks DPM :1950 A ge:74 Y S ex:Female Date:05/16/2025 [facility] [facility] Pcp:Brad Mcbride MD Subjective: * Chief Complaints: * * Medical History: Objective: * Vitals: Assessment: Plan: * Treatment: * Images: * The named appointment provid er may or may not be the originator of this progress note, and it is not deemed complete until electronically signed by the appointment provider. Sign off status: Pending * Provider: Magalys Ricks DPM Date: 07/16/2024 Generated for Printi ng/Faxing/eTransmitting on: 08/10/2024 12:40 PM EST
--- NOTE | 2025-06-09 10:30 | MHC.OFFVIS ---
Vital Signs 06/09/25 10:31 Height 5 ft 2 in Weight 133 lb BMI 24.3 Intake Visit Reasons: OV- MRI review/ Right shoulder Intake Note: Alayna is a 75 year old female who presents with complaints of progressively worsening right shoulder pain and weakness. The patient states that she injured her right shoulder several months ago while getting out of her bathtub. She pushed onto her right arm and felt a ?pop? in her right shoulder. Since that time she has had weakness when lifting her right hand above shoulder height. She has been going to formal physical therapy which gives her minimal relief. She has failed the last 6 weeks of conservative treatment which has included Tylenol, anti-inflammatory medicines, a home exercise program, physical therapy exercises and muscle relaxants. Allergies codeine (CODEINE) Allergy (Mild, Verified 06/09/25 10:30) DOUBLE VISION Codeine Phosphate Allergy (Unknown, Uncoded 06/09/25 10:30) Unknown Medication List - Last Reviewed 06/09/25 by DONTE Ramírez ascorbic acid (vitamin C) mg PO aspirin 81 mg PO DAILY cetirizine (Allergy Relief (cetirizine)) 10 mg PO DAILY PRN cholecalciferol (vitamin D3) 25 mcg PO DAILY coQ10 (ubiquinol) (Qunol Jem CoQ10) 100 mg PO DAILY dapagliflozin propanediol (Farxiga) 10 mg PO DAILY glipizide ER 2.5 mg PO DAILY 90 days ibuprofen 400 mg PO Q8H PRN levothyroxine (Synthroid) 100 mcg PO DAILY magnesium 250 mg PO DAILY metformin 1,000 mg PO DAILY simvastatin 20 mg PO BEDTIME [facility] Medical History Hypothyroidism Right shoulder pain Family History Mother No problems noted. Father No problems noted. Social History Housing: House Patient Tobacco Use Status: Never used Tobacco e-Cigarette/Vaping Use: Never Used service: No Current occupational status: employed Cognitive needs: No Hearing needs: No Vision needs: Yes (reading glasses) Physical Exam Vital Signs: BMI result Body Mass Index 24.3 Extrem Other: Right shoulder examination shows decreased range of motion when compared to her left shoulder, 3/5 strength with supraspinatus testing, positive impingement signs, no instability Results Reviewed Results Reviewed: MRI of the patient's right shoulder show severe acromioclavicular joint narrowing, a type 2 acromion, a large rotator cuff tear involving the supraspinatus and infraspinatus tendons with retraction fpc to the glenoid lip Assessment & Plan Assessment & Plan (1) Rotator cuff insufficiency of right shoulder: Code(s): M25.311 - Other instability, right shoulder Category: Medical Plan Ms. Bah presents with right shoulder pain and weakness due to a large rotator cuff tear. I had a lengthy discussion with the patient regarding the treatment options. The patient is considering undergoing surgery early next year. I will have her evaluated by my partner, Dr. Bliss, to get his opinion regarding primary repair with possible use of a surgical patch versus the need for reverse total shoulder replacement surgery. She will continue with her activity modifications in the meantime. Feel free to call me at any time should questions regarding her orthopedic management arise. I spent 20 minutes in reviewing the patient's records and imaging studies, seeing the patient and documenting in the medical record. Coding Level of Care Code Est Pt Level 3 (66367) Complex visit Add On G2211 Diagnoses Rotator cuff insufficiency of right shoulder M25.311
[2025-06-09 10:31] VITALS: BMI 24.3
--- OUTSIDE RECORDS SUMMARY | 2025-06-09 12:40 | XMS_ITS | Patient Health Record ---
Author Organization [facility] Address [address] [place] [address] Care Team Providers Care Fitting Room Associate Name Role Phone Reed (RETIRED) Brad ACKERMAN Primary Care Provider Unavailable True Lopez Unavailable [phone] Allergies Allergen (clinical drug ingredient) Drug/Non Drug Allergy documented on EMR Reaction Allergy Type Onset Date Status Codeine Phosphate Unknown Drug Allergy Active Reason For Referral No Information Medications Medication SIG (Take, Route, Frequency, Duration) Notes Start Date End Date Status Restasis 0.05 % Emulsion 1 null into aff ected eye Ophthalmic Twice a day Active Zocor 20 MG Tablet 1 tablet in the even ing Orally Once a day Active Levoxyl 88 MCG Tablet 1 tablet on an emp ty stomach in the morning Orally Once a day Active Aspir-81 81 MG Tablet Delayed Release 1 tablet Orally Once a day Active Vitamin C 500 MG Tablet Chewable 1 tablet Orally Once a day A ctive Cetirizine HCl 10 MG Tablet 1 tablet Orally Once a day A ctive Social History Tobacco Use: Social History Observation Description Date Details (start date - stop date) Never Smoker NA - NA Social History Drugs/Alcohol: Social Info Question Answer Notes Alcohol Screen Did you have a drink containing alcohol in the past year? Yes How often did you have a drink containing alcohol in the past year? Monthly or less (1 point) How many drinks did you have on a typical day when you were drinking in the past year? 1 or 2 drinks (0 point) How often did you have 6 or more drinks on one occasion in the past year? 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 Section Notes: Nonsmoker; no sig alcohol Problems Problem Type SNOMED Code ICD Code Onset Dates Problem Status W/U Status Risk Notes Problem Screening for malignant neoplasm of colon (506008582) Encounter for screening for malignant neoplasm of colon (Z12.11) Active confirmed Problem Preprocedural examination (331047282654607) Preprocedural examination (Z01.818) Active confirmed Plan Of Treatment Future Test Test Name Order Date COLONOSCOPY 11/13/2016 Insurance Providers Payer Name Payer Address Payer Phone Subscriber Number Group Number Insured Name Patient Relationship to Insured Coverage Start Date Coverage End Date [facility] [address] [place] [phone] [id number] VIKASH FLORES Self - patient is the insured Medical (General) History Medical History History ICD Code Screening colonoscopy 06-11-2004--diverti culosis, internal hemorrhoids Hypothyroidism Denies [place],CVA,Lung disease,renal disease Hyperlipidemia Diet-controlled DM Surgical History Surgery Date(Month/Year) C-sections x 2 Knee surgery Broken leg D&C Tendon repair on left wrist
== END 2025-06-09 10:43 | disposition home or self-care (01) ==
LOC: HO.HOS 10:24
PROVIDERS: PCP Student in an Organized Health Care Education/Training Program; Visit Provider Orthopaedic Surgery
DX: M25.311 Other instability, right shoulder (principal)
CPT/HCPCS: 99213; G2211

== ENCOUNTER → 2025-06-09 10:23 | Outpatient (BNVA) | payer MEDICARE, SELFPAY | PROVIDERS: PCP Student in an Organized Health Care Education/Training Program; Visit Provider Orthopaedic Surgery | DX: M25.311 Other instability, right shoulder (principal) | CPT/HCPCS: 99212 ==

== ENCOUNTER 2025-06-15 11:10 | Outpatient (REF) | payer MEDICARE, SELFPAY ==
--- OUTSIDE RECORDS SUMMARY | 2024-05-17 05:00 | XMS_ITS ---
Author Organization [facility] Address [address] [place] [address] Care Team Providers Care Mucker Operator Name Role Phone Brad Mcbride MD Primary Care Provider Unavailab marcos Ricks Olinda Unavailable [phone] Anurag Johnson Unavailable [phone] REASON FOR VISIT /tamara Encounters Encounter Location Date Provider Diagnosis [facility] [address] [place] [address] 05/17/2024 Anurag Johnson Plan Of Treatment No Information Progress Notes * Alayna FLORES LDOB: 2 (75 yo F)Acc No.[id number]:05/17/2024 Progress Note Patient: Alayna ARELLANO Provider: Thierno Jang DPM :1950 A ge:73 Y S ex:Female Date:05/17/2024 Address:[address] [place], [place] Pcp:Brad Mcbride MD Subjective: * Chief Complaints: [...] 07/17/2023 Generated for Ayan fleming/Mehdi/Roz on: 1 08/16/2024 06:03 PM EST
--- OUTSIDE RECORDS SUMMARY | 2025-05-16 05:00 | XMS_ITS ---
Author Organization [facility] Address [address] [place] [address] Care Team Providers Care Shafting Worker Name Role Phone Reed ACKERMAN, Brad Primary Care Provider Unavailab Olinda Oneill Unavailable [phone] Encounters Encounter Location Date Provider Diagnosis [facility] [address] [place] [address] 05/16/2025 Olinda Ricks Plan Of Treatment No Information Progress Notes * Alayna FLORES LDOB: 2 (75 yo F)Acc No.[id number]:05/16/2025 Progress Note Patient: Alayna ARELLANO Provider: Magalys Ricks DPM :1950 A ge:74 Y S ex:Female Date:05/16/2025 [facility] [facility] Pcp:Brad Mcbride MD Subjective: * Chief Complaints: [...] Date: 07/16/2024 Generated for Printi ng/Faxing/eTransmitting on: 08/16/2024 06:03 PM EST
--- OUTSIDE RECORDS SUMMARY | 2025-06-15 18:03 | XMS_ITS | Patient Health Record ---
Author Organization [facility] Address [address] [facility] [place] [address] Care Team Providers Care Transport Medic Name Role Phone Brad Mcbride MD Primary Care Provider Unavailab marcos Olinda Ricks Unavailable [phone] Allergies Allergen (clinical drug ingredient) Drug/Non Drug [...] Status Risk Notes Problem Acquired hallux valgus (48100454) Hallux valgus (acquired), left foot (M20.12) Active confirmed Problem Acquired hallux valgus (32347271) Hallux valgus (acquired), right foot (M20.11) Active confirmed Problem Polyneuropathy due to type 2 diabetes mellitus (882835901) Type 2 diabetes mellitus with diabetic polyneuropathy (E11.42) Active confirmed Encounters Encounter Location Date Provider Diagnosis [facility] [place] [address] [place] [address] 05/12/2025 Olinda Ricks Plan Of Treatment Pending Test Test Name Order Date X ray : Foot, left 2V 09/20/2013 X ray : Foot, left 3V 05/15/2022 X ray : Foot, right 3V 05/15/2022 53219-Wwzc Destruction, 1-14 02/10/2017 36168-Ctcm Destruction, 1-14 03/07/2017 87652-QCHD SKIN LESIONS, OVER 4 05/17/20 24 65481-JOSV SKIN LESIONS, 2 TO 4 05/15/20 22 98296-SZFH SKIN LESIONS, 2 TO 4 05/15/20 23 Insurance Providers Payer Name Payer Address Payer Phone Subscriber Number Group Number Insured Name Patient Relationship to Insured Coverage Start Date Coverage End Date [employer] [address] [place] [address] [phone] [id number] Alayna Bah Self - patient is the [...]
--- OUTSIDE RECORDS SUMMARY | 2025-06-15 18:03 | XMS_ITS | Patient Health Record ---
Author Organization [facility] Address [address] [place] [address] Care Team Providers Care Gift Manager Name Role Phone Reed (RETIRED) Brad ACKERMAN Primary Care Provider Unavailable True Lopez Unavailable [phone] Allergies Allergen (clinical drug ingredient) Drug/Non Drug [...] Problem Screening for malignant neoplasm of colon (675813025) Encounter for screening for malignant neoplasm of colon (Z12.11) Active confirmed Problem Preprocedural examination ([id number]) Preprocedural examination (Z01.818) Active confirmed Plan Of Treatment Future Test Test Name Order Date COLONOSCOPY 11/13/2016 Insurance Providers Payer Name Payer Address Payer Phone Subscriber Number Group Number Insured Name Patient Relationship to Insured Coverage Start Date Coverage End Date [facility] [address] [place] [phone] [id number] VIKASH FLORES Self - patient is the insured Medical (General) History Medical History History ICD Code Screening colonoscopy 06-11-2004--diverti culosis, internal hemorrhoids Hypothyroidism Denies HI,CVA,Lung disease,renal disease Hyperlipidemia Diet-controlled DM Surgical History Surgery Date(Month/Year) C-sections x 2 Knee surgery Broken leg D&C Tendon repair on left wrist
== END 2025-06-15 11:11 | disposition home or self-care (01) ==
LOC: HO.HMGCLDS 11:10
PROVIDERS: PCP Student in an Organized Health Care Education/Training Program; Visit Provider Student in an Organized Health Care Education/Training Program
DX: E11.9 Type 2 diabetes mellitus without complications (principal); E03.9 Hypothyroidism, unspecified; M25.511 Pain in right shoulder
CPT/HCPCS: 36415; 83036; 84443

== ENCOUNTER 2025-06-21 08:49 | Outpatient (AMB) | payer MEDICARE, SELFPAY ==
--- OUTSIDE RECORDS SUMMARY | 2024-05-17 05:00 | XMS_ITS ---
Author Organization [facility] Address [address] [place] [address] Care Team Providers Care Bunch Breaker Name Role Phone Reed ACKERMAN, Brad Primary Care Provider Unavailab marcos Ricks Olinda Unavailable [phone] Anurag Johnson Unavailable [phone] REASON FOR VISIT /tamara Encounters Encounter Location Date Provider Diagnosis [facility] [address] [place] [address] 05/17/2024 Anurag Johnson Plan Of Treatment No Information Progress Notes * Alayna FLORES LDOB: 2 (75 yo F)Acc No.[id number]:05/17/2024 Progress Note Patient: Alayna ARELLANO Provider: Thierno Jang DPM :1950 A ge:73 Y S ex:Female Date:05/17/2024 [address] [place] Pcp:Brad Mcbride MD Subjective: * Chief Complaints: [...] 07/17/2023 Generated for Ayan fleming/Mehdi/Roz on: 1 08/22/2024 09:36 AM EST
--- OUTSIDE RECORDS SUMMARY | 2025-05-16 05:00 | XMS_ITS ---
Author Organization [facility] Address [address] [place] [address] Care Team Providers Care Mechanic Field Service Name Role Phone Reed ACKERMAN, Brad Primary Care Provider Unavailab Olinda Oneill Unavailable [phone] Encounters Encounter Location Date Provider Diagnosis [facility] [address] [place] [address] 05/16/2025 Olidna Ricks Plan Of Treatment No Information Progress Notes * Alayna FLORES LDOB: 2 (75 yo F)Acc No.[id number]:05/16/2025 Progress Note Patient: Alayna ARELLANO Provider: Magalys Ricks DPM :1950 A ge:74 Y S ex:Female Date:05/16/2025 [facility] [facility] Pcp:Brad Mcbride MD Subjective: * Chief Complaints: [...] Date: 07/16/2024 Generated for Printi ng/Faxing/eTransmitting on: 08/22/2024 09:36 AM EST
--- NOTE | 2025-06-21 08:52 | MHC.PC.OV ---
Vital Signs 06/21/25 08:53 Height 5 ft 2 in Weight 136 lb BMI 24.9 BP 138/82 Blood Pressure Location Lt brachial Position Sitting Pulse 67 Pulse Source Pulse Oximeter Temp 98.4 F Temp Source Temporal Artery Scan Pulse Oximetry (%) 98 Oxygen Delivery Method Room Air Intake Visit Reasons: Routine Computer Patternmaker Required: No Accompanied by: Self / Same As Patient Allergies codeine (CODEINE) Allergy (Mild, Verified 06/21/25 08:54) DOUBLE VISION Codeine Phosphate Allergy (Unknown, Uncoded 06/09/25 10:30) Unknown Medication List - Last Reconciled 06/21/25 by LISA Anglin ascorbic acid (vitamin C) mg PO aspirin 81 mg PO DAILY cetirizine (Allergy Relief (cetirizine)) 10 mg PO DAILY PRN cholecalciferol (vitamin D3) 25 mcg PO DAILY coQ10 (ubiquinol) (Qunol Jem CoQ10) 100 mg PO DAILY dapagliflozin propanediol (Farxiga) 10 mg PO DAILY gabapentin 100 mg PO BEDTIME glipizide ER 2.5 mg PO DAILY 90 days ibuprofen 800 mg PO Q8H PRN levothyroxine (Synthroid) 100 mcg PO DAILY 90 days magnesium 250 mg PO DAILY metformin 1,000 mg PO DAILY simvastatin 20 mg PO BEDTIME Tobacco use date assessed: 06/21/25 Fall risk assessment: No Falls in past year Last assessed Fall Risk: 06/21/25 Dental Screening Dental Screen Date: 06/21/25 Did you have a dental visit in the last 12 months?: Yes Did you have a dental problem in the last 6 months where you did not have access to dental care?: No HPI HPI Comments History of Present Illness Details History of Present Illness The patient is a 75 year old female with T2DM, hypothyroidism, AR and Hyperlipidemia presenting for follow-up on her rotator cuff tear and chronic condition management. She has a significant torn rotator cuff of the shoulder, confirmed by MRI, and the software computer specialist has recommended surgery. She has a surgical consult scheduled for July [address] Bliss. The patient's symptoms fluctuate, with some days being better than others. She reports pain located in the shoulder that can burn, radiate up into her neck, and down her arm to the top of her hand, where it throbs. She notes a bruised feeling on her shoulder. The pain is affecting her sleep, causing her to wake up frequently, and she has found that placing a pillow behind her shoulder helps relieve pressure when lying on her back. She experiences significant fatigue, which she believes is due to the chronic pain. For pain management, she is taking gabapentin, which helps her sleep, and ibuprofen, which she finds as effective as the prescribed meloxicam. She tried a muscle relaxer twice but discontinued it due to morning side effects. She has also used topical CBD lotion and Aspercreme, noting that Aspercreme seems to be more effective. The patient attended physical therapy and continues to do stretching exercises, though her software computer specialist advised her to stop therapy. The patient is exploring stem cell therapy as an alternative to surgery after her son suggested it. She has researched a facility in [place], [place] online and is considering making an appointment for a consultation, especially if it's free. She is aware that this treatment is not covered by insurance and is expensive. Regarding her chronic conditions, her recent hemoglobin A1c was 7.4%, which is an improvement but still above the goal. She is taking Farxiga, Metformin and Glipizide. She admits to not being strict with her diabetic diet. Her thyroid function is well-controlled on her current levothyroxine dose, and she reported feeling more energetic after a recent dose adjustment. Her TSH was 0.87 Medical History: - Torn rotator cuff - Mild arthritis of the shoulder - Type 2 diabetes mellitus - Hypothyroidism Medications: - Metformin, taken at night - Farxiga, taken in the morning - Glipizide, taken in the morning - Gabapentin - Ibuprofen, as needed - Levothyroxine 88 mcg Health Maintenance - Monitoring of hemoglobin A1c for diabetes management. - Monitoring of thyroid function. Social History - She reports that her houses and cars are paid for, with few expenses other than utilities and taxes. - Her oldest son is getting remarried at the end of December in [place]. - She has a vacation planned for October. - She reports not being strict with her diabetic diet. Results - Labs: Recent Hemoglobin A1c is 7.4%. - Thyroid function tests were good. - Imaging: MRI of the shoulder showed a significant torn rotator cuff and mild arthritis changes. Patient was informed and verbally consented to the use of an ambient scribe for clinic note documentation during this visit. [facility] Medical History Hypothyroidism Right shoulder pain Family History (Updated 06/21/25 @ 09:08 by Sharda Wilkes MA) Mother No problems noted. Father No problems noted. Social History Housing: House Patient Tobacco Use Status: Never used Tobacco e-Cigarette/Vaping Use: Never Used service: No Current occupational status: employed Cognitive needs: No Hearing needs: No Vision needs: Yes (reading glasses) Questionnaire PHQ-9 Over the last 2 weeks, how often have you been bothered by any of the following problems? 1. Little interest or pleasure in doing things: not at all 2. Feeling down, depressed, or hopeless: several days 3. Trouble falling or staying asleep, or sleeping too much: more than half the days (trouble staying asleep because she has right shoulder pain.) 4. Feeling tired or having little energy: several days (little energy because she is not sleeping at night.) 5. Poor appetite or overeating: not at all 6. Feeling bad about yourself - or that you are a failure or have let yourself or your family down: not at all 7. Trouble concentrating on things, such as reading the newspaper or watching television: not at all 8. Moving or speaking so slowly that other people could have noticed. Or the opposite - being so fidgety or restless that you have been moving around a lot more than usual: not at all 9. Thoughts that you would be better off or of hurting yourself in some way: not at all Total score: 4 Depression Screening Interpretation: Negative Depression Screening Done: Yes Source: Developed by Drs. True Patricia, Celina Gregorio, Josiah Pena and colleagues, with an educational anh from [employer]. Thrive Questionnaire Date Thrive assessed: 06/21/25 I am a: Patient Within the past 12 months, did the food you bought not last and you didn't have the money to get more?: Never true Within the past 12 months, did you worry whether your food would run out before you got money to buy more?: Never true Do you have trouble paying for medicines?: No Do you have trouble getting transportation to medical appointments?: No Do you have trouble paying your heating and electricity bill?: No Do you have trouble taking care of your child, family member or friend?: No Do you have trouble with day-to-day activities such as bathing, preparing meals, shopping, managing finances, etc.?: No Are you currently unemployed and looking for a job?: No Are you interested in more education?: No THRIVE Score: 0 AUDIT C Alcohol Use Questionnaire (AUDIT-C) 1. How often do you have a drink containing alcohol?: Never 3. How often do you have six or more drinks on one occasion?: Never Total Score: 0 GAURAV-7 AMB Questionnaire GAURAV-7 Date GAURAV - 7 assessed: 06/21/25 Feeling nervous, anxious, or on edge: 0 = Not at all Not being able to stop or control worryin = Not at all Worrying too much about different things: 0 = Not at all Trouble relaxin = Not at all Being so restless that it is hard to sit still: 0 = Not at all Becoming easily annoyed or irritable: 0 = Not at all Feeling afraid as if something awful might happen: 0 = Not at all Total GAURAV-7 score (0-4 normal; 5-9 mild; 10-14 moderate; 15-21 severe): 0 Source: Developed by Drs. True Patricia, Celina Gregorio, Josiah Pena and colleagues, with an educational anh from [employer]. Review of Systems Narrative CONSTITUTIONAL Feeling tired HEAD/NECK Negative RESPIRATORY Negative CARDIOVASCULAR Negative MUSCULOSKELETAL Reports right shoulder pain that radiates to her neck and down her arm to her hand, with associated throbbing and a sensation of burning. NEUROLOGICAL Negative PSYCHIATRIC Poor sleep due to pain Physical exam (Primary Care) Vital Signs: Last Vital Signs Temp 98.4 F 06/21/25 08:53 Pulse 67 06/21/25 08:53 BP 138/82 06/21/25 08:53 Pulse Ox 98 06/21/25 08:53 Oxygen Delivery Method Room Air 06/21/25 08:53 BMI result Body Mass Index 24.9 GENERAL Well developed, Well nourished, in no apparent distress HEENT Head-Normocephalic Neck- Supple, No lymphadenopathy, thyroid WNL RESPIRATORY Normal I:E, Clear to auscultation CARDIOVASCULAR Regular, rate and rhythm, No murmurs or rubs MUSCULOSKELETAL Right shoulder- decreased ROM, Tender over GH joint, crepitus noted NEUROLOGICAL Gait normal PSYCHIATRIC Oriented to person, place and time Mood and affect WNL Appearance WNL Speech WNL Thought processes WNL Tobacco/Smoking Status: Tobacco use Status Tobacco use date assessed 06/21/25 06/21/25 09:12 Patient Tobacco Use Status Never used Tobacco 06/21/25 09:12 e-Cigarette/Vaping Use Never Used 06/21/25 09:12 PHQ-9: PHQ-9 Score PHQ-9: Total score 4 06/21/25 09:12 Depression Screening Interpretation: Negative Thrive Assessment: Date of Thrive Assessment Date Thrive assessed 06/21/25 06/21/25 09:12 Narrative Physical Exam Coding Level of Care Code Established Pt Est Pt Level 4 (82330) Established Pt Add On Problem Visit Only Patient Type Established Diagnoses Rotator cuff insufficiency of right shoulder M25.311 Hypothyroidism, unspecified type E03.9 Hypothyroidism type: unspecified Type 2 diabetes mellitus without complication, without long-term current use of insulin E11.9 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 thaw shed heater tender insulin use: without thaw shed heater tender use 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 complication status: without complication Time Spent (min) 30 Comment Time spent on chart review, H&P, Patient education, orders Assessment & Plan Assessment & Plan (1) Rotator cuff insufficiency of right shoulder: Code(s): M25.311 - Other instability, right shoulder Category: Medical Plan: Patient to see Ortho on 07/25 (2) Hypothyroidism: Comment: TSH was 0.87 Code(s): E03.9 - Hypothyroidism, unspecified Category: Medical Qualifiers: Hypothyroidism type: unspecified Qualified Code(s): E03.9 - Hypothyroidism, unspecified Plan: Controlled. Patient will continue current medications. Will monitor. Patient will follow up in 4 months (3) T2DM (type 2 diabetes mellitus): Comment: A1c was 7.4% Code(s): E11.9 - Type 2 diabetes mellitus without complications Category: Medical Qualifiers: 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 chcf insulin use: without chcf use 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 complication status: without complication Qualified Code(s): E11.9 - Type 2 diabetes mellitus without complications Plan: Improved. Patient will continue current medications. Will monitor. Patient will follow up in 4 months Plan Plan Patient was informed and verbally consented to the use of an ambient scribe for clinic note documentation during this visit. 1. Rotator Cuff Tear The patient has a significant rotator cuff tear confirmed by MRI, with orthopedics recommending surgery. She has a surgical consultation scheduled for July 25 and will inquire about the recovery timeline. The patient is also considering stem cell therapy as an alternative and plans to seek a consultation, particularly if it is free of charge, as she is aware it is an expensive, [id number] procedure. She will continue using ibuprofen and gabapentin for symptom management. She was advised to keep me informed about the surgical plans. 2. Type 2 Diabetes Mellitus The patient's recent Hemoglobin A1c was 7.4%, an improvement but still above goal. Given her admission of not adhering strictly to her diet, we will defer any medication changes at this time. The plan is to focus on dietary management, especially during the holiday season, and recheck her labs in approximately four months. She will continue her current regimen of metformin, Farxiga, and glipizide. 3. Hypothyroidism The patient's recent thyroid labs were good, and she reported improved energy levels after a recent dose adjustment of her levothyroxine. We will continue her current dose and monitor labs again in four months. Discussion Notes I reviewed the orthopedic notes and the MRI results, which confirm a significant rotator cuff tear. We discussed the recommendation for surgery and her upcoming consultation on July 25. We also discussed her interest in stem cell therapy as an alternative, and I noted that while it is an established treatment for certain cancers and covered by insurance in those cases, its use in orthopedics is not yet established and generally not covered by insurance. I encouraged her to proceed with a free consultation if available to gather more information. I explained that her fatigue is likely a result of the chronic pain from her shoulder injury. We reviewed her recent lab work, noting her A1c has improved to 7.4% and her thyroid levels are good. We agreed to hold her current diabetes and thyroid medications steady, focusing on dietary improvements for her diabetes, and will recheck labs in about four months. I advised her to have labs drawn about a week before her next follow-up appointment in four months and to keep me updated on her surgical plans. Patient Instructions - Continue taking your current medications as prescribed. - Focus on managing your diet to help improve your blood sugar levels. - You may schedule a free consultation to learn more about stem cell therapy for your shoulder if you are interested. - We will recheck your lab work in about 4 months. - Please get your lab work done about one week before your next scheduled appointment. - Schedule a follow-up appointment in four months. - Please keep us informed about the final plan for your shoulder after your specialist appointment. Orders: Orders Glucose Random Today E11.9 - Type 2 diabetes mellitus without complications Hemoglobin A1c Today E11.9 - Type 2 diabetes mellitus without complications TSH reflex Free T4 Today E03.9 - Hypothyroidism, unspecified
[2025-06-21 08:53] VITALS: BP 138/82; PULSE 67; TEMP 36.9; O2SAT 98; BMI 24.9
--- OUTSIDE RECORDS SUMMARY | 2025-06-21 09:36 | XMS_ITS | Patient Health Record ---
Author [facility] Address [address] [place] [address] Care Team Providers Care Donor Relations Manager Name Role Phone Brad Mcbride MD Primary Care Provider Unavailab marcos Olinda Ricks Unavailable [phone] Allergies Allergen (clinical drug ingredient) Drug/Non Drug [...] Once a day Not-Taking Multivitamins Orally Not-Ta ajmel Vitamin C Not-Taking Vitamin D 1000 UNIT [...] Status Risk Notes Problem Acquired hallux valgus (12769040) Hallux valgus (acquired), left foot (M20.12) Active confirmed Problem Acquired hallux valgus (00842297) Hallux valgus (acquired), right foot (M20.11) Active confirmed Problem Polyneuropathy due to type 2 diabetes mellitus (631963352) Type 2 diabetes mellitus with diabetic polyneuropathy (E11.42) Active confirmed Encounters Encounter Location Date Provider Diagnosis [facility] [place] [address] [place] [address] 05/12/2025 Olinda Ricks Plan Of Treatment Pending Test Test Name Order Date X ray : Foot, left 2V 09/20/2013 X ray : Foot, left 3V 05/15/2022 X ray : Foot, right 3V 05/15/2022 [id number] Destruction, 1-14 02/10/2017 [id number] Destruction, 1-14 03/07/2017 [id number] SKIN LESIONS, OVER 4 05/17/20 24 [id number] SKIN LESIONS, 2 TO 4 05/15/20 22 [id number] SKIN LESIONS, 2 TO 4 05/15/20 23 Insurance Providers Payer Name Payer Address Payer Phone Subscriber Number Group Number Insured Name Patient Relationship to Insured Coverage Start Date Coverage End Date [employer] [place] [employer] [address] [place] [address] [id number] Alayna Bah Self - patient is the [...]
--- OUTSIDE RECORDS SUMMARY | 2025-06-21 09:36 | XMS_ITS | Patient Health Record ---
Author Organization [facility] Address [address] [place] [address] Care Team Providers Care Education Consultant Name Role Phone Reed (RETIRED) Brad ACKERMAN Primary Care Provider Unavailable True Lopez Unavailable [phone] Allergies Allergen (clinical drug ingredient) Drug/Non Drug [...] Problem Screening for malignant neoplasm of colon (795715848) Encounter for screening for malignant neoplasm of colon (Z12.11) Active confirmed Problem Preprocedural examination (575485505749343) Preprocedural examination (Z01.818) Active confirmed Plan Of Treatment Future Test Test Name Order Date COLONOSCOPY 11/13/2016 Insurance Providers Payer Name Payer Address Payer Phone Subscriber Number Group Number Insured Name Patient Relationship to Insured Coverage Start Date Coverage End Date [facility] [address] [place] [phone] [id number] VIKASH FLORES Self - patient is the insured Medical (General) History Medical History History ICD Code Screening colonoscopy 06-11-2004--diverti culosis, internal hemorrhoids Hypothyroidism Denies [place],CVA,Lung disease,renal disease Hyperlipidemia Diet-controlled DM Surgical History Surgery Date(Month/Year) C-sections x 2 Knee surgery Broken leg D&C Tendon repair on left wrist
== END 2025-06-21 09:44 | disposition home or self-care (01) ==
LOC: HO.HMCHD 08:50
PROVIDERS: PCP Physician Assistant Medical; Visit Provider Physician Assistant Medical
DX: M25.311 Other instability, right shoulder (principal); E03.9 Hypothyroidism, unspecified; E11.9 Type 2 diabetes mellitus without complications

== ENCOUNTER → 2025-06-21 08:49 | Outpatient (BNVA) | payer MEDICARE, SELFPAY | PROVIDERS: PCP Physician Assistant Medical; Visit Provider Physician Assistant Medical | DX: M25.511 Pain in right shoulder (principal); M25.311 Other instability, right shoulder; E03.9 Hypothyroidism, unspecified; E11.9 Type 2 diabetes mellitus without complications; Z13.31 Encounter for screening for depression; Z13.39 Encounter for screening examination for other mental health and behavioral disorders | CPT/HCPCS: 96127; 99212 ==